=== PATIENT | male | born 1950 | race Caucasian/White ===

== ENCOUNTER 2017-07-25 10:27 | Observation (INO) ==
--- NOTE | 2017-07-25 10:57 | Emergency Department Note ---
Disposition Clinical Impression: Dyspnea on exertion Acute exacerbation of CHF (congestive heart failure) Qualifiers: Heart failure type: combined systolic and diastolic Qualified Code(s): I50.43 - Acute on chronic combined systolic (congestive) and diastolic (congestive) heart failure Disposition: Admitted As Inpatient Condition: Fair Time of Disposition: 11:54 SOB HPI - General Chief Complaint: ED Shortness of Breath/Dyspnea Stated Complaint: ROXANN From UC + Chest XR Time Seen by Provider: 07/25/17 10:35 Source: patient, family Mode of arrival: ambulatory Limitations: no limitations, physical limitation Nursing Notes Reviewed: Yes Vital Signs Reviewed: Yes - History of Present Illness 67-year-old male presents to the emergency department complaining of shortness of breath. Patient does have history of CHF, A. fib and recently had an ablation was on digoxin and has since stopped it, COPD with oxygen use at night as well as nebulized treatments and CPAP at night, diabetes and is on Coumadin. Patient states his approximately 5 days ago that had a lot of family in and out of the house that he has been doing quite a walking and moving around anytime he moves around he is becomes very short of breath. Says very abnormal for an becomes short of breath with the activity that he is doing. He does not have any chest pain he does take 40 mg Lasix twice daily. There is been continued take that but seems to not be helping his shortness of breath. They called his primary care office this morning asking about the issue with the shortness of breath they recommend go to the urgent care. At the urgent care they did an x-ray noticed that there was pulmonary edema and recommended he come here for further evaluation. Patient otherwise has no complaints including fevers, chills, nausea, vomiting, headaches, blurry vision , neck pain, back pain, chest pain, abdominal pain, pain with urination, change in bowel movements, pain or tingling on the arms or legs or any generalized weakness. - Related Data Home Medications Medication Instructions Recorded Confirmed Albuterol Sulfate [Albuterol 2 puff IH Q4HR PRN 01/11/15 07/08/17 Inhaler] Allopurinol [Zyloprim] 100 mg PO DAILY 01/11/15 07/08/17 Beclomethasone Diprop 80mcg [QVAR 1 puff IH BIDR 09/25/15 03/22/18 80 mcg] Carvedilol [Coreg] 3.125 mg PO BID 01/11/15 07/08/17 Cyanocobalamin (Vitamin B-12) 1,000 mcg PO QWEEK PRN 01/11/15 07/08/17 [Vitamin B12] Digoxin [Lanoxin] 0.125 mg PO DAILY 01/11/15 07/08/17 Levothyroxine [Synthroid] 112 mcg PO QAM 01/11/15 07/08/17 Spironolactone [Aldactone] 25 mg PO DAILY 01/11/15 07/08/17 Warfarin [Coumadin] 2.5 mg PO QPM 01/11/15 07/08/17 Digoxin [Lanoxin] 0.25 mg PO DAILY 06/16/15 07/08/17 Betaxolol 0.25% [Betoptic S] 1 drop BOTH EYES QAM 06/17/15 07/08/17 Travoprost [Travatan Z] 1 drop BOTH EYES HS 06/17/15 07/08/17 Cholecalciferol (Vitamin D3) 5,000 unit PO DAILY 07/08/17 07/08/17 [Vitamin D3] Previous Rx's Medication Instructions Recorded Atorvastatin [Lipitor] 40 mg PO DAILY #30 tablet 06/19/15 Furosemide [Lasix] 40 mg PO BID #60 06/19/15 Lisinopril [Zestril] 2.5 mg PO DAILY #30 tablet 06/19/15 Allergies Allergy/AdvReac Type Severity Reaction Status Date / Time aspirin [ASA] Allergy See Verified 05/28/16 14:56 Comments Penicillins Allergy See Verified 05/28/16 14:56 Comments Tetracycline Allergy See Verified 05/28/16 14:56 Comments vancomycin Allergy See Verified 05/28/16 14:56 Comments hydrochlorothiazide AdvReac Rash Verified 07/08/17 08:52 NSAIDS (Non-Steroidal AdvReac See Verified 07/08/17 08:52 Anti-Inflamma Comments Review of Systems: 10 point review of systems done and negative unless otherwise stated in the history of present illness. All systems ED: reviewed and negative except as stated. Review of Systems: As Per HPI Past Medical History - Past Medical History Attestation: Yes The following information was validated with the patient. Source: patient, obtained from family Medical history: Reports: atrial fibrillation, cardiomyopathy, CHF, diabetes, hyperlipidemia, hypertension, kidney stones, renal disease, thyroid disease Surgical history: Reports: pacemaker/AICD Psychiatric history: Reports: no psych history - Social History Smoking Status: Never smoker Smokeless Tobacco Status: No Alcohol use: Reports: occasionally Drug use: Reports: none Physical Exam - General Limitations: physical limitation General appearance: alert, in no apparent distress - Head Head exam: atraumatic, normocephalic, normal inspection - Eye Eye exam: Present: normal appearance, PERRL, EOMI - ENT ENT exam: normal exam, normal oropharynx, mucous membranes moist - Neck Neck exam: Present: normal inspection, full ROM, trachea midline - Chest Chest inspection: Present: normal inspection, symmetric chest wall rise - Respiratory Respiratory exam: Present: normal lung sounds bilaterally. Absent: respiratory distress, wheezes, stridor, accessory muscle use, prolonged expiratory phase - Cardiovascular Cardiovascular exam: Present: regular rate, normal rhythm, normal heart sounds - Abdominal Exam Abdominal exam: Present: soft, Non-Tender, normal bowel sounds. Absent: tenderness, distention, guarding, rebound, rigidity - Extremities Exam Extremities exam: Present: normal inspection, full ROM, pedal edema (1+ pitting edema bilaterally in the legs.). Absent: tenderness - Expanded Lower Extremity Exam Neurovascular/Tendon exam: Present: normal capillary refill. Absent: pulse deficit, motor deficit, sensory deficit, tendon deficit - Back Exam Back exam: Present: normal inspection, full ROM. Absent: tenderness, CVA tenderness (R), CVA tenderness (L) - Neurological Exam Neurological exam: Present: alert, oriented X3 - Skin Skin exam: Present: warm, dry, intact, normal color Course Course Narrative: 67-year-old male presented to the emergency department complaining of shortness of breath. Chest x-ray 2 view was done in urgent care and reviewed here. Will get EKG, basic labs including CBC, CMP, lactate, troponin as well as urinalysis. Patient clinically does not seem to be fluid overloaded he seems euvolemic now. Will not give any more Lasix or Nitro at this time as he is not having chest pain at this time. Disposition pending results Vital Signs Temperature 97.9 F 07/25/17 10:29 Pulse Rate 84 07/25/17 10:29 Respiratory Rate 20 07/25/17 10:29 Blood Pressure 115/80 07/25/17 10:29 O2 Sat by Pulse Oximetry 97 07/25/17 10:29 Temperature 97.9 F 07/25/17 10:29 Pulse Rate 85 07/25/17 11:55 Respiratory Rate 20 07/25/17 11:55 Blood Pressure 114/72 07/25/17 11:55 O2 Sat by Pulse Oximetry 95 07/25/17 11:55 Oxygen Delivery Oxygen Delivery Room Air Shortness of Breath/Dyspnea - MDM Narrative Medical decision making narrative: 67-year-old male presents to the emergency department complaining of shortness of breath. He does have his history of CHF as well as COPD and diabetes. Recently had an ablation. Digoxin. He also had his bypass with approximately 5 days ago and is having undergone increased stressors. Patient is unable to do normal daily activities have becoming shortness of breath. He did have an elevated BNP but his troponin was negative as well as all other labs were negative. His creatinine was slightly more elevated than normal but still within his normal limits. Due to the BNP as well as him being symptomatic we felt that admission would be warranted. I did contact the on-call glove examiner Dr. Brown who stated that there seems to be no acute processes going on he said the ST depression in his EKG is expected as well as it is old. He does have an ejection fraction of 15% chronically. Because patient retook his Lasix we will not give Lasix at this time in the emergency [place] does have chest pains or will not give nitroglycerin. I spoke with the hospitalist Dr. Valladares who agreed to admit the patient to their service. Patient and family are okay with this plan. Patient is admitted in stable condition. We did look at the x- ray that was done at the urgent care was did show possibly pulmonary edema as well as an enlarged heart. This was read in the [place] radiology department. - Medical Records Medical records reviewed: Yes I reviewed the patient's medical records. - Lab Data Lab results reviewed: Yes I reviewed the patient's lab results. Result diagrams: 07/25/17 10:49 07/25/17 10:49 Lab Results 07/25/17 07/25/17 07/25/17 Range/Units 10:49 10:49 10:49 WBC 8.8 (4.3-11.1) K/mcL RBC 4.68 (4.19-5.50) M/mcL Hgb 15.1 (12.9-16.9) g/dL Hct 45.4 (37.5-50.1) % MCV 97.0 (83.0-100.0) fL MCH 32.3 (28.0-33.3) pg MCHC 33.3 (31.6-35.5) g/dL RDW 15.8 H (11.5-14.5) % Plt Count 201 (140-400) K/mcL MPV 10.0 (9.4-12.4) fL Immature Gran % 0.6 (0-4) % Seg Neutrophils % 78.7 % Lymphocytes % 9.4 % Monocytes % 10.5 % Eosinophils % 0.5 % Basophils % 0.3 % Neutrophils # 6.9 (1.6-8.9) K/mcL Lymphocytes # 0.8 (0.6-4.6) K/mcL Monocytes # 0.9 (0.0-1.3) K/mcL Eosinophils # 0.0 (0.0-0.6) K/mcL Basophils # 0.0 (0.0-0.2) K/mcL Sodium 142 (136-145) mEq/L Potassium 4.8 (3.5-5.1) mEq/L Chloride 105 (98-107) mEq/L Carbon Dioxide 25 (23-29) mEq/L BUN 33 H (8-23) mg/dL Creatinine 1.52 H (0.70-1.30) mg/dL Est GFR ( Amer) 55 L (> 60) Est GFR (Non-Af Amer) 46 L (> 60) BUN/Creatinine Ratio 22 (6-26) Glucose 155 H (70-105) mg/dL Calculated Osmolality 304 H (280-300) Lactic Acid (0.5-2.2) mmol/L Calcium 9.1 (8.6-10.3) mg/dL Total Bilirubin 3.9 H (0.3-1.0) mg/dL AST 33 (13-39) Units/L ALT 50 (7-52) Units/L Alkaline Phosphatase 49 (34-104) Units/L Troponin I 0.03 (< 0.04) ng/mL B-Natriuretic Peptide 1296 H (Less than 100) pg/mL Serum Total Protein 6.6 (6.4-8.9) g/dL Albumin 4.1 (3.5-5.7) g/dL Globulin 2.5 (2.4-3.5) g/dL Albumin/Globulin Ratio 1.6 (1.1-2.2) Urine Color (Yellow) Urine Clarity (Clear) Urine pH (5.0-8.0) pH Units Ur Specific [place] (1.010-1.025) Urine Protein (Neg-Trace) mg/dL Urine Glucose (UA) (Normal) mg/dL Urine Ketones (Negative) mg/dL Urine Blood (Negative) Urine Nitrite (Negative) Urine Bilirubin (Negative) Urine Urobilinogen (Normal) mg/dL Ur Leukocyte Esterase (Negative) Ur Culture Indicated? (NO) 07/25/17 07/25/17 Range/Units 10:50 11:33 WBC (4.3-11.1) K/mcL RBC (4.19-5.50) M/mcL Hgb (12.9-16.9) g/dL Hct (37.5-50.1) % MCV (83.0-100.0) fL MCH (28.0-33.3) pg MCHC (31.6-35.5) g/dL RDW (11.5-14.5) % Plt Count (140-400) K/mcL MPV (9.4-12.4) fL Immature Gran % (0-4) % Seg Neutrophils % % Lymphocytes % % Monocytes % % Eosinophils % % Basophils % % Neutrophils # (1.6-8.9) K/mcL Lymphocytes # (0.6-4.6) K/mcL Monocytes # (0.0-1.3) K/mcL Eosinophils # (0.0-0.6) K/mcL Basophils # (0.0-0.2) K/mcL Sodium (136-145) mEq/L Potassium (3.5-5.1) mEq/L Chloride (98-107) mEq/L Carbon Dioxide (23-29) mEq/L BUN (8-23) mg/dL Creatinine (0.70-1.30) mg/dL Est GFR ( Amer) (> 60) Est GFR (Non-Af Amer) (> 60) BUN/Creatinine Ratio (6-26) Glucose (70-105) mg/dL Calculated Osmolality (280-300) Lactic Acid 1.8 (0.5-2.2) mmol/L Calcium (8.6-10.3) mg/dL Total Bilirubin (0.3-1.0) mg/dL AST (13-39) Units/L ALT (7-52) Units/L Alkaline Phosphatase (34-104) Units/L Troponin I (< 0.04) ng/mL B-Natriuretic Peptide (Less than 100) pg/mL Serum Total Protein (6.4-8.9) g/dL Albumin (3.5-5.7) g/dL Globulin (2.4-3.5) g/dL Albumin/Globulin Ratio (1.1-2.2) Urine Color Yellow (Yellow) Urine Clarity Clear (Clear) Urine pH 6.0 (5.0-8.0) pH Units Ur Specific [place] 1.015 (1.010-1.025) Urine Protein Negative (Neg-Trace) mg/dL Urine Glucose (UA) Normal (Normal) mg/dL Urine Ketones Negative (Negative) mg/dL Urine Blood Negative (Negative) Urine Nitrite Negative (Negative) Urine Bilirubin Negative (Negative) Urine Urobilinogen Normal (Normal) mg/dL Ur Leukocyte Esterase Negative (Negative) Ur Culture Indicated? NO (NO) - Radiology Data Radiology results reviewed: Yes I reviewed the patient's radiology results. - EKG Data EKG attestation: Yes I reviewed and interpreted this EKG. EKG results narrative: EKG done at 1103 review myself and attending shows a ventricular paced rhythm at a rate of 91, URS 26, QTc 501 with a leftward axis. There is no T-wave abnormalities there is ST depression in V4 and V5 in his [place] beats. No other signs of ischemia. No heart strength, hypertrophy, heart block. No WPW/ Brugada syndrome. His EKG does show the ST depressions in the old one done 06/16 otherwise no other acute changes
[2017-07-25 11:23] LABS: Basophils % 0.3 %; Eosinophils % 0.5 %; Hematocrit 45.4 % (37.5-50.1); Hemoglobin 15.1 g/dL (12.9-16.9); Immature Granulocytes % 0.6 % (0-4); Lymphocytes % 9.4 %; Mean Corpuscular HGB Conc 33.3 g/dL (31.6-35.5); Mean Corpuscular Hemoglobin 32.3 pg (28.0-33.3); Monocytes % 10.5 %; Platelet Count 201 K/mcL (140-400); Red Blood Count 4.68 M/mcL (4.19-5.50); Red Cell Distribution Width 15.8 % (11.5-14.5); Segmented Neutrophils % 78.7 %
[2017-07-25 11:24] LABS: Lymphocytes # 0.8 K/mcL (0.6-4.6); Monocytes # 0.9 K/mcL (0.0-1.3); Neutrophils # 6.9 K/mcL (1.6-8.9)
[2017-07-25 11:33] LABS: Albumin 4.1 g/dL (3.5-5.7); Albumin/Globulin Ratio 1.6 (1.1-2.2); Bilirubin,Total 3.9 mg/dL (0.3-1.0); Calcium 9.1 mg/dL (8.6-10.3); Globulin 2.5 g/dL (2.4-3.5); Potassium 4.8 mEq/L (3.5-5.1); Total Protein 6.6 g/dL (6.4-8.9); Troponin I 0.03 ng/mL (< 0.04)
[2017-07-25 11:43] LABS: Bilirubin,Urine Negative (Negative); Blood,Urine Negative (Negative); Clarity,Urine Clear (Clear); Color,Urine Yellow (Yellow); Glucose,Urine (UA) Normal (Normal); Ketones,Urine Negative (Negative); Leukocyte Esterase,Urine Negative (Negative); Nitrite,Urine Negative (Negative); Protein,Urine Negative (Neg-Trace); Specific Gravity,Urine 1.015 (1.010-1.025); Urobilinogen,Urine Normal (Normal)
[2017-07-25] MEDS ORDERED: Naloxone 0.4 MG/ML INJ IVP PRN (12:49)
--- NOTE | 2017-07-25 12:59 | Emergency Department Note ---
Disposition Clinical Impression: Dyspnea on exertion Acute exacerbation of CHF (congestive heart failure) Qualifiers: Heart failure type: combined systolic and diastolic Qualified Code(s): I50.43 - Acute on chronic combined systolic (congestive) and diastolic (congestive) heart failure Disposition: Admitted As Inpatient Condition: Fair Referrals: Alina Ramos DO [Primary Care Provider] - Time of Disposition: 11:35 SOB HPI - General Chief Complaint: ED Shortness of Breath/Dyspnea Stated Complaint: ROXANN From UC + Chest XR Time Seen by Provider: 07/25/17 10:35 Source: patient, family Mode of arrival: ambulatory Limitations: physical limitation Nursing Notes Reviewed: Yes Vital Signs Reviewed: Yes - Related Data Home Medications Medication Instructions Recorded Confirmed Albuterol Sulfate [Albuterol 2 puff IH Q4HR PRN 01/11/15 07/08/17 Inhaler] Allopurinol [Zyloprim] 100 mg PO DAILY 01/11/15 07/08/17 Beclomethasone Diprop 80mcg [QVAR 1 puff IH BIDR 01/11/15 07/08/17 80 mcg] Carvedilol [Coreg] 3.125 mg PO BID 01/11/15 07/08/17 Cyanocobalamin (Vitamin B-12) 1,000 mcg PO QWEEK PRN 01/11/15 07/08/17 [Vitamin B12] Digoxin [Lanoxin] 0.125 mg PO DAILY 01/11/15 07/08/17 Levothyroxine [Synthroid] 112 mcg PO QAM 01/11/15 07/08/17 Spironolactone [Aldactone] 25 mg PO DAILY 01/11/15 07/08/17 Warfarin [Coumadin] 2.5 mg PO QPM 01/11/15 07/08/17 Digoxin [Lanoxin] 0.25 mg PO DAILY 06/16/15 07/08/17 Betaxolol 0.25% [Betoptic S] 1 drop BOTH EYES QAM 06/17/15 07/08/17 Travoprost [Travatan Z] 1 drop BOTH EYES HS 06/17/15 07/08/17 Cholecalciferol (Vitamin D3) 5,000 unit PO DAILY 07/08/17 07/08/17 [Vitamin D3] Previous Rx's Medication Instructions Recorded Atorvastatin [Lipitor] 40 mg PO DAILY #30 tablet 06/19/15 Furosemide [Lasix] 40 mg PO BID #60 06/19/15 Lisinopril [Zestril] 2.5 mg PO DAILY #30 tablet 06/19/15 Allergies Allergy/AdvReac Type Severity Reaction Status Date / Time aspirin [ASA] Allergy See Verified 05/28/16 14:56 Comments Penicillins Allergy See Verified 05/28/16 14:56 Comments Tetracycline Allergy See Verified 05/28/16 14:56 Comments vancomycin Allergy See Verified 05/28/16 14:56 Comments hydrochlorothiazide AdvReac Rash Verified 07/08/17 08:52 NSAIDS (Non-Steroidal AdvReac See Verified 07/08/17 08:52 Anti-Inflamma Comments Past Medical History - Past Medical History Medical history: Reports: atrial fibrillation, cardiomyopathy, CHF, diabetes, hyperlipidemia, hypertension, kidney stones, renal disease, thyroid disease Surgical history: Reports: pacemaker/AICD Psychiatric history: Reports: no psych history - Social History Smoking Status: Never smoker Smokeless Tobacco Status: No Alcohol use: Reports: occasionally Drug use: Reports: none Physical Exam - General Limitations: physical limitation General appearance: alert, in no apparent distress Course Vital Signs Temperature 97.9 F 07/25/17 10:29 Pulse Rate 84 07/25/17 10:29 Respiratory Rate 20 07/25/17 10:29 Blood Pressure 115/80 07/25/17 10:29 O2 Sat by Pulse Oximetry 97 07/25/17 10:29 Temperature 97.9 F 07/25/17 10:29 Pulse Rate 85 07/25/17 11:55 Respiratory Rate 20 07/25/17 11:55 Blood Pressure 114/72 07/25/17 11:55 O2 Sat by Pulse Oximetry 95 07/25/17 11:55 Oxygen Delivery Oxygen Delivery Room Air Shortness of Breath/Dyspnea - Lab Data Result diagrams: 07/25/17 10:49 07/25/17 10:49 Lab Results 07/25/17 07/25/17 07/25/17 Range/Units 10:49 10:49 10:49 WBC 8.8 (4.3-11.1) K/mcL RBC 4.68 (4.19-5.50) M/mcL Hgb 15.1 (12.9-16.9) g/dL Hct 45.4 (37.5-50.1) % MCV 97.0 (83.0-100.0) fL MCH 32.3 (28.0-33.3) pg MCHC 33.3 (31.6-35.5) g/dL RDW 15.8 H (11.5-14.5) % Plt Count 201 (140-400) K/mcL MPV 10.0 (9.4-12.4) fL Immature Gran % 0.6 (0-4) % Seg Neutrophils % 78.7 % Lymphocytes % 9.4 % Monocytes % 10.5 % Eosinophils % 0.5 % Basophils % 0.3 % Neutrophils # 6.9 (1.6-8.9) K/mcL Lymphocytes # 0.8 (0.6-4.6) K/mcL Monocytes # 0.9 (0.0-1.3) K/mcL Eosinophils # 0.0 (0.0-0.6) K/mcL Basophils # 0.0 (0.0-0.2) K/mcL Sodium 142 (136-145) mEq/L Potassium 4.8 (3.5-5.1) mEq/L Chloride 105 (98-107) mEq/L Carbon Dioxide 25 (23-29) mEq/L BUN 33 H (8-23) mg/dL Creatinine 1.52 H (0.70-1.30) mg/dL Est GFR ( Amer) 55 L (> 60) Est GFR (Non-Af Amer) 46 L (> 60) BUN/Creatinine Ratio 22 (6-26) Glucose 155 H (70-105) mg/dL Calculated Osmolality 304 H (280-300) Lactic Acid (0.5-2.2) mmol/L Calcium 9.1 (8.6-10.3) mg/dL Total Bilirubin 3.9 H (0.3-1.0) mg/dL AST 33 (13-39) Units/L ALT 50 (7-52) Units/L Alkaline Phosphatase 49 (34-104) Units/L Troponin I 0.03 (< 0.04) ng/mL B-Natriuretic Peptide 1296 H (Less than 100) pg/mL Serum Total Protein 6.6 (6.4-8.9) g/dL Albumin 4.1 (3.5-5.7) g/dL Globulin 2.5 (2.4-3.5) g/dL Albumin/Globulin Ratio 1.6 (1.1-2.2) Urine Color (Yellow) Urine Clarity (Clear) Urine pH (5.0-8.0) pH Units Ur Specific [place] (1.010-1.025) Urine Protein (Neg-Trace) mg/dL Urine Glucose (UA) (Normal) mg/dL Urine Ketones (Negative) mg/dL Urine Blood (Negative) Urine Nitrite (Negative) Urine Bilirubin (Negative) Urine Urobilinogen (Normal) mg/dL Ur Leukocyte Esterase (Negative) Ur Culture Indicated? (NO) 07/25/17 07/25/17 Range/Units 10:50 11:33 WBC (4.3-11.1) K/mcL RBC (4.19-5.50) M/mcL Hgb (12.9-16.9) g/dL Hct (37.5-50.1) % MCV (83.0-100.0) fL MCH (28.0-33.3) pg MCHC (31.6-35.5) g/dL RDW (11.5-14.5) % Plt Count (140-400) K/mcL MPV (9.4-12.4) fL Immature Gran % (0-4) % Seg Neutrophils % % Lymphocytes % % Monocytes % % Eosinophils % % Basophils % % Neutrophils # (1.6-8.9) K/mcL Lymphocytes # (0.6-4.6) K/mcL Monocytes # (0.0-1.3) K/mcL Eosinophils # (0.0-0.6) K/mcL Basophils # (0.0-0.2) K/mcL Sodium (136-145) mEq/L Potassium (3.5-5.1) mEq/L Chloride (98-107) mEq/L Carbon Dioxide (23-29) mEq/L BUN (8-23) mg/dL Creatinine (0.70-1.30) mg/dL Est GFR ( Amer) (> 60) Est GFR (Non-Af Amer) (> 60) BUN/Creatinine Ratio (6-26) Glucose (70-105) mg/dL Calculated Osmolality (280-300) Lactic Acid 1.8 (0.5-2.2) mmol/L Calcium (8.6-10.3) mg/dL Total Bilirubin (0.3-1.0) mg/dL AST (13-39) Units/L ALT (7-52) Units/L Alkaline Phosphatase (34-104) Units/L Troponin I (< 0.04) ng/mL B-Natriuretic Peptide (Less than 100) pg/mL Serum Total Protein (6.4-8.9) g/dL Albumin (3.5-5.7) g/dL Globulin (2.4-3.5) g/dL Albumin/Globulin Ratio (1.1-2.2) Urine Color Yellow (Yellow) Urine Clarity Clear (Clear) Urine pH 6.0 (5.0-8.0) pH Units Ur Specific [place] 1.015 (1.010-1.025) Urine Protein Negative (Neg-Trace) mg/dL Urine Glucose (UA) Normal (Normal) mg/dL Urine Ketones Negative (Negative) mg/dL Urine Blood Negative (Negative) Urine Nitrite Negative (Negative) Urine Bilirubin Negative (Negative) Urine Urobilinogen Normal (Normal) mg/dL Ur Leukocyte Esterase Negative (Negative) Ur Culture Indicated? NO (NO) Attestation Statement - Attestation Attestation: I, Ray Fernandez, examined this patient and my medical decision-making was reviewed with the BEHAVIORAL HEALTH THERAPIST/PA/Advanced Practice Nurse/Resident Physician. I agree with the documented findings, disposition and treatment plan as described except to the extent set forth below. 67-year-old male presents emergency Department with increasing shortness of breath over the past week with significantly worsened symptoms over the past 24 hours. Family notes that patient has significantly worsened dyspnea with exertion over the past 24 hours. Patient states his 5 days ago and he is under an extreme amount of stress. Patient has a history of atrial fibrillation with a pacemaker/defibrillator in place, he recently had a cardiac ablation performed and was taken off digoxin within the past few weeks. Patient initial EKG showed a ventricularly paced rhythm with multiple PVCs and [place] beats which were concerning for possible ST depression and elevation. These [place] beats were similar to [place] beats that were recorded on previous EKGs however. Patient has no chest pain in the emergency department. Initial troponin was negative. The resident, Dr. Escobar spoke with the patient centered care specialist, Dr. Brown regarding the patient's case and presentation who felt comfortable that the morphology of the [place] beats was not an acute finding. Patient will be admitted to the hospitalist for further care and evaluation of his shortness of breath with exertion and likely CHF exacerbation. Chest x-ray shows likely interstitial edema was does not show obvious infiltrate. Patient is afebrile and he does not have a leukocytosis, we will hold antibiotics at this time. Patient is comfortable with the plan of action.
--- NOTE | 2017-07-25 12:59 | Internal Med History&Physical ---
<Mario Simms J - Last Filed: 07/25/17 12:57> Date of Encounter: 07/25/17 Time of Encounter: 12:57 Internal Medicine - H&P: HPI Chief complaint: dyspnea, CHF Admitted From: Home Plans for Post Hospital Care: Home History of present illness: Mr. Hart is a 67 year old male with a PMH of PAF, BRIAN, PND, cardiomyopathy, CHF, DM, HLD, HTN. Presents to [facility] today increasing shortness of breath which began last night. The patient reports that he has been under a lot of stress as his recently . Since then he has had to increase his activity beyond his normal day to day activities. He he c/o increasing shortness of breath with activity. He went to Urgent Care per the recommendations of his sleeper cutter. While at urgent care and x-ray was completed and pulmonary edema was found. He does have a history of CHF with an ejection fraction of 15% and is on Coreg and Lasix. He denies any fever, chills , chest pain, dizziness, weakness, increase in abdominal girth, increase in weight, increase in extremity swelling or extremity pain. No other complaints at this time. Today in the ED he was revealed to have a BNP of 1296. Past Med Surg Social Fam HX - Past Medical History Medical history: atrial fibrillation, cardiomyopathy, CHF, diabetes, hyperlipidemia, hypertension, kidney stones, renal disease, thyroid disease Psychiatric history: no psych history - Past Surgical History Surgical History: pacemaker/AICD - Social History Smoking Status: Never smoker Smokeless Tobacco Status: No Alcohol use: occasionally Drug use: none - Family History Mother Adopted: No Family Member Ethnicity: Non- Living Status: Hx Family Cardiac Disorders: Yes Hx Family Respiratory Disorders: No Hx Family Cancer: No Hx Family GI Disorders: No Hx Family Endocrine Disorder: No Hx Family Neuromuscular Disorders: No Hx Family Neurologic Disorders: No Hx Family HEENT Disorders: No Hx Family Autoimmune Disorders: Yes Father Family Member Ethnicity: Non- Living Status: Hx Family Cardiac Disorders: No Hx Family Respiratory Disorders: No Hx Family Cancer: No Hx Family GI Disorders: No Hx Family Endocrine Disorder: Yes Hx Family Neuromuscular Disorders: No Hx Family Neurologic Disorders: No Hx Family HEENT Disorders: Yes Hx Family Autoimmune Disorders: No Internal Medicine - H&P: Meds Albuterol Sulfate [Albuterol Inhaler] 2 puff IH Q4HR PRN 01/11/15 [History] Allopurinol [Zyloprim] 100 mg PO QPM 01/11/15 [History] Beclomethasone Diprop 80mcg [QVAR 80 mcg] 1 puff IH BIDR 01/11/15 [History] Carvedilol [Coreg] 6.25 mg PO BID 01/11/15 [History] Cyanocobalamin (Vitamin B-12) [Vitamin B12] 1,000 mcg PO TH 01/11/15 [History] Levothyroxine [Synthroid] 112 mcg PO QAM 01/11/15 [History] Spironolactone [Aldactone] 25 mg PO DAILY 01/11/15 [History] Warfarin [Coumadin] 2.5 mg PO QPM 01/11/15 [History] Betaxolol 0.25% [Betoptic S] 1 drop BOTH EYES QAM 06/17/15 [History] Travoprost [Travatan Z] 1 drop BOTH EYES HS 06/17/15 [History] Furosemide [Lasix] 40 mg PO BID #60 06/19/15 [Rx] Lisinopril [Zestril] 2.5 mg PO DAILY #30 tablet 06/19/15 [Rx] Cholecalciferol (Vitamin D3) [Vitamin D3] 5,000 unit PO DAILY 07/08/17 [History] Atorvastatin [Lipitor] 40 mg PO QPM 07/25/17 [History] 3 Allergy/AdvReac Type Severity Reaction Status Date / Time aspirin [ASA] Allergy See Verified 05/28/16 14:56 Comments Penicillins Allergy See Verified 05/28/16 14:56 Comments Tetracycline Allergy See Verified 05/28/16 14:56 Comments vancomycin Allergy See Verified 05/28/16 14:56 Comments hydrochlorothiazide AdvReac Rash Verified 07/08/17 08:52 NSAIDS (Non-Steroidal AdvReac See Verified 07/08/17 08:52 Anti-Inflamma Comments All Systems PM: A 10-system review of systems was performed and is negative for pertinent findings except as documented above in the HPI. Review of systems: REVIEW OF SYSTEMS GENERAL: Negative for any nausea, vomiting, fevers, chills, or weight loss. NEUROLOGIC: Negative for any blurry vision, blind spots, double vision, facial asymmetry, dysphagia, dysarthria, hemiparesis, hemisensory deficits, vertigo, ataxia. HEENT: Negative for any head trauma, neck trauma, neck stiffness, photophobia, phonophobia, sinusitis, rhinitis. CARDIAC: Negative for any chest pain, peripheral edema. Positive for dyspnea, worsens with exertion, positive for paroxysmal nocturnal dyspnea PULMONARY: Negative for any wheezing, COPD. GASTROINTESTINAL: Negative for any abdominal pain, nausea, vomiting, bright red blood per rectum, melena. GENITOURINARY: Negative for any dysuria, hematuria, incontinence. INTEGUMENTARY: Negative for any rashes, cuts, insect bites. RHEUMATOLOGIC: Negative for any joint pains, photosensitive rashes, history of vasculitis or kidney problems. HEMATOLOGIC: Negative for any abnormal bruising, frequent infections or bleeding. - Constitutional Vitals: Temp Pulse Resp BP Pulse Ox 97.9 F 85 20 114/72 95 07/25/17 10:29 07/25/17 11:55 07/25/17 11:55 07/25/17 11:55 07/25/17 11:55 General appearance: Present: cooperative, A&O X 3, no acute distress, answers questions appropriately Exam: PHYSICAL EXAMINATION: GENERAL: The patient is an ill appearing obese male in no apparent distress. He is alert and oriented x3. HEENT: Head is normocephalic and atraumatic. Extraocular muscles are intact. Pupils are equal, round, and reactive to light and accommodation. LUNGS: Fine crackles bilateral bases HEART: Regular rate and rhythm without murmur. ABDOMEN: Soft, nontender, and nondistended. Positive bowel sounds. EXTREMITIES: No extremity edema noted, no tenderness, radial pulses equal 2+ bilaterally, posterior tibial and dorsal pedal pulses equal 2+ bilaterally NEUROLOGIC: No slurred speech or facial droop noted PSYCHIATRIC: Flat affect, does not appear anxious SKIN: No ulceration, rashes or skin lesions Internal Med - H&P Results - Labs CBC & Chem 7: 07/25/17 10:49 07/25/17 10:49 - EKG Data -: EKG Interpreted by Myself - EKG Data EKG comments: EKG showed a ventricularly paced rhythm with multiple PVCs and [place] beats no changes when compared to prior ECG tracing 07/25/17 13:09 - Impressions 1. Interstitial pulmonary edema suggestive of congestive heart failure given mild to moderate cardiomegaly. 2. Right middle lobe airspace opacity potentially representing alveolar edema, pneumonia, and/or atelectasis. Superimposed right middle lobe subsegmental atelectasis. 3. Trace bilateral pleural effusions. - Assessment and plan (1) Acute on chronic systolic (congestive) heart failure Current Visit: Yes Status: Acute Assessment and plan: Presents today with increasing dyspnea. denies any chest pain CXR shows pulmonary vascular congestion, BNP of 1296 Diagnoses of acute on chronic systolic heart failure. Euvolemic today on examination, no extremity edema EF noted to be 15-20%; history of nonischemic cardiomyopathy, [facility] in 2010 shows minimal CAD IV Lasix 40 mg twice a day Continue home BB and EFRAIN Strict I's and O's and daily weight Continuous telemetry, continuous SPO2 monitoring Respiratory support per nasal cannula. Initial troponin negative,trend troponin BMP in the am TTE now (2) Cardiomyopathy Current Visit: Yes Status: Chronic Assessment and plan: History of nonischemic cardiomyopathy [facility]-2010 with minimal CAD EF 15-20% Qualifiers: Cardiomyopathy type: unspecified Qualified Code(s): I42.9 - Cardiomyopathy , unspecified (3) CKD (chronic kidney disease) stage 3, GFR 30-59 ml/min Current Visit: Yes Status: Chronic Assessment and plan: H/O CKD stage 3. Serum Cr baseline of 1.5, no changes per today's labs (4) HLD (hyperlipidemia) Current Visit: Yes Status: Chronic Assessment and plan: Continue Lipitor Qualifiers: Hyperlipidemia type: unspecified Qualified Code(s): E78.5 - Hyperlipidemia , unspecified (5) HTN (hypertension) Current Visit: Yes Status: Chronic Assessment and plan: History of HTN, blood pressure stable. Resume anti-HTN medications Qualifiers: Hypertension type: essential hypertension Qualified Code(s): I10 - Essential (primary) hypertension (6) BRIAN on CPAP Current Visit: Yes Status: Chronic Assessment and plan: CPAP at night (7) Presence of cardiac pacemaker Current Visit: No Status: Chronic (8) DVT prophylaxis Current Visit: Yes Status: Acute Assessment and plan: Heparin 5000 units SC BID (9) Atrial fibrillation Current Visit: Yes Status: Acute Assessment and plan: H/o A-fib, paced rhythm today with [place] beats per ECG. Continue Coreg, and Warfarin with PT to dose PT/INR now Qualifiers: Atrial fibrillation type: unspecified Qualified Code(s): I48.91 - Unspecified atrial fibrillation - Time Spent With Patient Total time spent is greater than 50% in coordination of care (as documented) at patient's floor/unit and/or counseling patient: 25 - 35 minutes <Kaden Valladares Jeanette - Last Filed: 07/26/17 00:04> Date of Encounter: 07/26/17 Internal Medicine - H&P: HPI History of present illness: Mr. Hart is a 67 year old male All Systems PM: A 10-system review of systems was performed and is negative for pertinent findings except as documented above in the HPI. - Constitutional Vitals: Temp Pulse Resp BP Pulse Ox 98.1 F 110 18 132/96 98 07/25/17 23:04 07/25/17 23:04 07/25/17 23:04 07/25/17 23:04 07/25/17 23:04 Internal Med - H&P Results - Labs CBC & Chem 7: 07/25/17 10:49 07/25/17 10:49 Labs: Cardiac Enzymes 07/25/17 07/25/17 Range/Units 15:57 21:15 Troponin I 0.04 H* 0.03 (< 0.04) ng/mL - Attending Attestation The patient was independently examined and his available records, labs and tests were reviewed. I bamss with the HOUSEKEEPER/CUSTODIAN/LAUNDRY WORKER's A&P. - Assessment and plan (1) Cardiomyopathy Current Visit: Yes Status: Chronic Qualifiers: Cardiomyopathy type: unspecified Qualified Code(s): I42.9 - Cardiomyopathy , unspecified (2) CKD (chronic kidney disease) stage 3, GFR 30-59 ml/min Current Visit: Yes Status: Chronic (3) Presence of cardiac pacemaker Current Visit: No Status: Chronic (4) BRIAN on CPAP Current Visit: Yes Status: Chronic (5) HTN (hypertension) Current Visit: Yes Status: Chronic Qualifiers: Hypertension type: essential hypertension Qualified Code(s): I10 - Essential (primary) hypertension (6) HLD (hyperlipidemia) Current Visit: Yes Status: Chronic Qualifiers: Hyperlipidemia type: unspecified Qualified Code(s): E78.5 - Hyperlipidemia , unspecified (7) DVT prophylaxis Current Visit: Yes Status: Acute (8) Acute on chronic systolic (congestive) heart failure Current Visit: Yes Status: Acute (9) Atrial fibrillation Current Visit: Yes Status: Acute Qualifiers: Atrial fibrillation type: unspecified Qualified Code(s): I48.91 - Unspecified atrial fibrillation - Time Spent With Patient Total time spent is greater than 50% in coordination of care (as documented) at patient's floor/unit and/or counseling patient:
[2017-07-25 13:10] LABS: INR 2.6; Prothrombin Time 28.5 Seconds (9.4-12.1)
[2017-07-25] MEDS: Furosemide 40 MG/4 ML VIAL IVP SCH ×2 (14:34→22:04)
[2017-07-25] MEDS ORDERED: Dextrose Gel 15 GM/37.5 ML TUBE PO PRN ×2 (16:22)
[2017-07-25] MEDS ORDERED: D5% in Water 1,000 ML IVC PRN (16:22)
[2017-07-25] MEDS ORDERED: *HR* Dextrose 50 % in Water (Syg) 50 ML SYRINGE IVP PRN (16:22)
[2017-07-25] MEDS: Insulin LISPRO 300 UNITS/3 ML VIAL SQ SCH (17:23)
[2017-07-25] MEDS ORDERED: Warfarin perPT PO PRN (18:00)
[2017-07-25] MEDS ORDERED: *HR* Warfarin 2.5 MG TABLET PO SCH (18:00)
[2017-07-25] MEDS ORDERED: Insulin LISPRO 300 UNITS/3 ML VIAL SQ SCH (21:00)
[2017-07-25] MEDS ORDERED: Latanoprost 2.5 ML BOTTLE BOTH EYES SCH (21:00)
[2017-07-25] MEDS ORDERED: Beclomethasone 80mcg MDI IH SCH (22:00)
[2017-07-26 05:51] LABS: INR 2.3; Prothrombin Time 25.4 Seconds (9.4-12.1)
[2017-07-26 06:05] LABS: Calcium 9.1 mg/dL (8.6-10.3); Potassium 4.1 mEq/L (3.5-5.1)
[2017-07-26 06:28] VITALS: BP 108/71
[2017-07-26] MEDS: Furosemide 40 MG/4 ML VIAL IVP SCH (07:46)
[2017-07-26] MEDS: Insulin LISPRO 300 UNITS/3 ML VIAL SQ SCH (07:49)
--- NOTE | 2017-07-26 07:52 | Discharge Summary ---
- NOTES TO OUTPATIENT PROVIDER Notes to Outpatient Provider: Admitted with acute exac CHF. Improved with diuresis. Orders not resulted at time of discharge: Pending orders 07/25/17 13:12 EV echocardiogram Routine 07/27/17 04:00 PT/INR [Prothrombin Time INR] [COAG] AM 0400 07/28/17 04:00 PT/INR [Prothrombin Time INR] [COAG] AM 0400 Date of Encounter: 07/26/17 Time of Encounter: 07:50 - Discharge Diagnosis (1) Acute on chronic systolic (congestive) heart failure Priority: Primary Status: Acute (2) Cardiomyopathy Priority: Secondary Status: Chronic Qualifiers: Cardiomyopathy type: other Qualified Code(s): I42.8 - Other cardiomyopathies (3) CKD (chronic kidney disease) stage 3, GFR 30-59 ml/min Priority: Secondary Status: Chronic (4) Presence of cardiac pacemaker Priority: Secondary Status: Chronic (5) BRIAN on CPAP Priority: Secondary Status: Chronic (6) HTN (hypertension) Priority: Secondary Status: Chronic Qualifiers: Hypertension type: essential hypertension Qualified Code(s): I10 - Essential (primary) hypertension (7) HLD (hyperlipidemia) Priority: Secondary Status: Chronic Qualifiers: Hyperlipidemia type: mixed hyperlipidemia Qualified Code(s): E78.2 - Mixed hyperlipidemia (8) DVT prophylaxis Priority: Secondary Status: Acute (9) Atrial fibrillation Priority: Secondary Status: Chronic Qualifiers: Atrial fibrillation type: paroxysmal Qualified Code(s): I48.0 - Paroxysmal atrial fibrillation Hospital course: Mr. Hart is a 67 year old male with hx of PAF, BRIAN and nonischemic cardiomyopathy with EF 15% presented to ED with complaints of increasing dyspnea. His recently and he has had increased activity since then. He denied CP. He was placed in observation for further evaluation and treatment. Mr. Hart was placed in observation on med tele. He was given IV Lasix with improvement. He slept OK and had no new acute issues. His CXR was improved in AM. He was able to ambulate in the hart and did not require oxygen. He is afebrile at this time and ready for discharge to attend his 's this AM. His children are here with him. He is high risk for readmission with CHF but at this point is improved enough to be discharged for his 's . Discharge discussed with: patient, family, nurse - Time Spent with Patient Total time spent providing and/or coordinating discharge services: 39min - Discharge Medications Home Medications: Albuterol Sulfate [Albuterol Inhaler] 2 puff IH Q4HR PRN 01/11/15 [History] Allopurinol [Zyloprim] 100 mg PO QPM 01/11/15 [History] Beclomethasone Diprop 80mcg [QVAR 80 mcg] 1 puff IH BIDR 01/11/15 [History] Carvedilol [Coreg] 6.25 mg PO BID 01/11/15 [History] Cyanocobalamin (Vitamin B-12) [Vitamin B12] 1,000 mcg PO TH 01/11/15 [History] Levothyroxine [Synthroid] 112 mcg PO QAM 01/11/15 [History] Spironolactone [Aldactone] 25 mg PO DAILY 01/11/15 [History] Warfarin [Coumadin] 2.5 mg PO QPM 01/11/15 [History] Betaxolol 0.25% [Betoptic S] 1 drop BOTH EYES QAM 06/17/15 [History] Travoprost [Travatan Z] 1 drop BOTH EYES HS 06/17/15 [History] Furosemide [Lasix] 40 mg PO BID #60 06/19/15 [Rx] Lisinopril [Zestril] 2.5 mg PO DAILY #30 tablet 06/19/15 [Rx] Cholecalciferol (Vitamin D3) [Vitamin D3] 5,000 unit PO DAILY 07/08/17 [History] Atorvastatin [Lipitor] 40 mg PO QPM 07/25/17 [History] Allergies/Adverse Reactions: 3 Allergy/AdvReac Type Severity Reaction Status Date / Time aspirin [ASA] Allergy See Verified 05/28/16 14:56 Comments Penicillins Allergy See Verified 05/28/16 14:56 Comments Tetracycline Allergy See Verified 05/28/16 14:56 Comments vancomycin Allergy See Verified 05/28/16 14:56 Comments hydrochlorothiazide AdvReac Rash Verified 07/08/17 08:52 NSAIDS (Non-Steroidal AdvReac See Verified 07/08/17 08:52 Anti-Inflamma Comments Date of admission: 07/25/17 12:52 Primary care physician: Alina Ramos DO Consults: 07/25/17 13:39 Consult to Pastoral Services [CONS] Routine Comment: 07/25/17 19:38 Consult to Fabrication And Assembly Supervisor [CONS] Routine Reason for SW Consult: Pt requesting information for assisted living on d/c. Discharging clinician: Abdirizak Souza Anticipated date of discharge: 07/26/17 - Constitutional Vitals: Temp Pulse Resp BP Pulse Ox 98.1 F 96 15 108/71 94 07/26/17 06:22 07/26/17 06:22 07/26/17 06:22 07/26/17 06:22 07/26/17 06:22 General appearance: Present: cooperative, A&O X 3, answers questions appropriately - Head Head exam: Present: normocephalic - Eye Eye exam: Present: conjuntiva pink - ENT ENT exam: Present: mucous membranes dry - Respiratory Respiratory exam: Present: decreased breath sounds, rhonchi. Absent: rales, wheezes Additional comments: Scant scattered rhonchi. No rales. - Cardiovascular Cardiovascular exam: Present: RRR. Absent: tachycardia - GI/Abdominal GI/Abdominal exam: Present: soft. Absent: tenderness - Extremities Exam Extremities exam: Present: warm. Absent: tenderness Additional comments: Trace edema - Neurological Exam Neurological exam: Present: alert, oriented X3 - Skin Skin exam: Present: dry, warm - Patient Status Disposition: Home Health Service Condition: Fair Functional capacity at discharge: independent ambulation Overall status at discharge: patient is progressing back to baseline - Discharge Instructions Follow Up With: Alina Ramos DO [Primary Care Provider] - Forms: ED Satisfaction Letter - Diet and Activity Activity: increase activity as tolerated Diet: low fat, low cholesterol, low salt diet
--- NOTE | 2017-07-26 08:15 | Physician Discharge Referral ---
Home Health/Hosp Referral Info Transfer to: Home Health Provider in Charge Post Discharge: PCP - Diagnosis (1) Acute on chronic systolic (congestive) heart failure Priority: Primary Status: Acute (2) Cardiomyopathy Priority: Primary Status: Chronic (3) CKD (chronic kidney disease) stage 3, GFR 30-59 ml/min Priority: Secondary Status: Chronic (4) Presence of cardiac pacemaker Priority: Secondary Status: Chronic (5) BRIAN on CPAP Priority: Secondary Status: Chronic (6) HTN (hypertension) Priority: Secondary Status: Chronic (7) HLD (hyperlipidemia) Priority: Secondary Status: Chronic (8) DVT prophylaxis Priority: Secondary Status: Acute (9) Atrial fibrillation Priority: Secondary Status: Chronic - Respiratory Orders Oxygen / L per min (With CPAP), None Smoking Cessation: Smoking cessation has been advised. For more information, call the [employer] Tobacco Quit Line at 2-277-ISZY-NOW. - Diet/Nutrition Diet/Nutrition Orders: No Added Salt (POLLO), Cardiac - Activity Activity Orders: Up ad hector - Services Needed Following services are medically necessary services: Nursing, Physical Therapy, Occupational Therapy - Transfer Medications Home Medications: Albuterol Sulfate [Albuterol Inhaler] 2 puff IH Q4HR PRN 01/11/15 [History] Allopurinol [Zyloprim] 100 mg PO QPM 01/11/15 [History] Beclomethasone Diprop 80mcg [QVAR 80 mcg] 1 puff IH BIDR 01/11/15 [History] Carvedilol [Coreg] 6.25 mg PO BID 01/11/15 [History] Cyanocobalamin (Vitamin B-12) [Vitamin B12] 1,000 mcg PO TH 01/11/15 [History] Levothyroxine [Synthroid] 112 mcg PO QAM 01/11/15 [History] Spironolactone [Aldactone] 25 mg PO DAILY 01/11/15 [History] Warfarin [Coumadin] 2.5 mg PO QPM 01/11/15 [History] Betaxolol 0.25% [Betoptic S] 1 drop BOTH EYES QAM 06/17/15 [History] Travoprost [Travatan Z] 1 drop BOTH EYES HS 06/17/15 [History] Furosemide [Lasix] 40 mg PO BID #60 06/19/15 [Rx] Lisinopril [Zestril] 2.5 mg PO DAILY #30 tablet 06/19/15 [Rx] Cholecalciferol (Vitamin D3) [Vitamin D3] 5,000 unit PO DAILY 07/08/17 [History] Atorvastatin [Lipitor] 40 mg PO QPM 07/25/17 [History] Allergies/Adverse Reactions: 3 Allergy/AdvReac Type Severity Reaction Status Date / Time aspirin [ASA] Allergy See Verified 05/28/16 14:56 Comments Penicillins Allergy See Verified 05/28/16 14:56 Comments Tetracycline Allergy See Verified 05/28/16 14:56 Comments vancomycin Allergy See Verified 05/28/16 14:56 Comments hydrochlorothiazide AdvReac Rash Verified 07/08/17 08:52 NSAIDS (Non-Steroidal AdvReac See Verified 07/08/17 08:52 Anti-Inflamma Comments Certification: Further, I certify that my clinical findings support that this patient is homebound (i.e. absences from home require considerable and taxing effort and are for medical reasons or synagogue services or infrequently or short duration when for other reasons) because: Homebound Reason: Patient requires assistance of a person or device to safely leave home, Severity of cardiac or pulmonary status limits activity tolerance Attestation: My signature below is to certify that this patient is under my care and that I, or nurse practitioner, or a physician's health assistant working with me, has a face-to -face encounter with this patient.
[2017-07-26] MEDS ORDERED: Spironolactone 25 MG TABLET PO SCH (09:00)
[2017-07-26] MEDS ORDERED: Cholecalciferol (D-3) 1,000 UNIT TABLET PO SCH (09:00)
[2017-07-29] MEDS ORDERED: Cyanocobalamin (B-12) 1,000 MCG TABLET PO SCH (09:00)
== END 2017-07-26 08:42 | disposition home health service (06) ==
LOC: EMEROO 10:27 → 2NENU 10:27
PROVIDERS: ADMIT Internal Medicine; ATTEND Internal Medicine

== ENCOUNTER 2017-07-29 08:17 | Inpatient (IN) ==
[2017-07-29] MEDS ORDERED: Furosemide 40 MG/4 ML VIAL IVP ONE (08:44)
--- NOTE | 2017-07-29 08:53 | Emergency Department Note ---
Disposition Clinical Impression: Acute on chronic systolic (congestive) heart failure, CKD (chronic kidney disease) stage 3, GFR 30-59 ml/min Disposition: Admitted As Inpatient Condition: Fair Referrals: Alina Ramos DO [Primary Care Provider] - Forms: ED Satisfaction Letter SOB HPI - General Chief Complaint: ED Shortness of Breath/Dyspnea Stated Complaint: ROXANN Time Seen by Provider: 07/29/17 08:31 Source: patient, EMS Mode of arrival: private vehicle Limitations: no limitations Nursing Notes Reviewed: Yes Vital Signs Reviewed: Yes - History of Present Illness Pt Subjective Complaint: shortness of breath Onset (ago): week(s) Context: other (Continued [facility]; hx of CHF. Admitted here on 07/25 for same. Not better.) Severity: moderate Consistency/Duration: intermittent Improves with: rest Worsens with: exertion Known history of: congestive heart failure Associated symptoms: Reports: polyuria. Denies: chest pain, pain with inspiration, fever, cough, wheezing, sputum production, orthopnea, lower extremity pain, polydipsia, parasthesias, palpitations, hemoptysis, diaphoresis , nausea/vomiting, syncope, abdominal pain, rash, sense of impending doom - Related Data Home Medications Medication Instructions Recorded Confirmed Albuterol Sulfate [Albuterol 2 puff IH Q4HR PRN 01/11/15 07/29/17 Inhaler] Allopurinol [Zyloprim] 100 mg PO QPM 01/11/15 07/29/17 Beclomethasone Diprop 80mcg [QVAR 1 puff IH BIDR 01/11/15 07/29/17 80 mcg] Carvedilol [Coreg] 6.25 mg PO BID 01/11/15 07/29/17 Cyanocobalamin (Vitamin B-12) 1,000 mcg PO TH 01/11/15 07/29/17 [Vitamin B12] Levothyroxine [Synthroid] 112 mcg PO QAM 01/11/15 07/29/17 Spironolactone [Aldactone] 25 mg PO DAILY 01/11/15 07/29/17 Warfarin [Coumadin] 2.5 mg PO QPM 01/11/15 07/29/17 Betaxolol 0.25% [Betoptic S] 1 drop BOTH EYES QAM 06/17/15 07/29/17 Travoprost [Travatan Z] 1 drop BOTH EYES HS 06/17/15 07/29/17 Cholecalciferol (Vitamin D3) 5,000 unit PO DAILY 07/08/17 07/29/17 [Vitamin D3] Atorvastatin [Lipitor] 40 mg PO QPM 07/25/17 07/29/17 Previous Rx's Medication Instructions Recorded Furosemide [Lasix] 40 mg PO BID #60 06/19/15 Lisinopril [Zestril] 2.5 mg PO DAILY #30 tablet 06/19/15 Allergies Allergy/AdvReac Type Severity Reaction Status Date / Time aspirin [ASA] Allergy See Verified 07/29/17 09:25 Comments Penicillins Allergy See Verified 07/29/17 09:25 Comments Tetracycline Allergy See Verified 07/29/17 09:25 Comments vancomycin Allergy See Verified 07/29/17 09:25 Comments hydrochlorothiazide AdvReac Rash Verified 07/29/17 09:25 NSAIDS (Non-Steroidal AdvReac See Verified 07/29/17 09:25 Anti-Inflamma Comments All systems ED: reviewed and negative except as stated. Review of Systems: As Per HPI Constitutional: Denies: fever, chills, weakness, weight change, night sweats ENT ED: Denies: throat pain, congestion, dysphagia Cardiovascular: Reports: as per HPI, dyspnea on exertion, orthopnea. Denies: chest pain, palpitations, edema, syncope, paroxysmal nocturnal dyspnea Respiratory: Reports: as per HPI, cough (chronic, occasional). Denies: wheezes , hemoptysis, stridor, sputum production Gastrointestinal: Denies: abdominal pain, nausea, vomiting, diarrhea Genitourinary: Reports: urgency, frequency. Denies: dysuria, hematuria Musculoskeletal: Denies: back pain, neck pain, joint swelling, arthralgia Integumentary: Denies: rash Neurological: Denies: headache, weakness, confusion Endocrine: Reports: fatigue Hematological/Lymphatic: Denies: easy bleeding, easy bruising Past Medical History - Past Medical History Attestation: Yes The following information was validated with the patient. Source: obtained from family Medical history: Reports: atrial fibrillation, cardiomyopathy, CHF, diabetes, hyperlipidemia, hypertension, kidney stones, renal disease, thyroid disease Surgical history: Reports: pacemaker/AICD Psychiatric history: Reports: no psych history - Social History Smoking Status: Never smoker Smokeless Tobacco Status: No Alcohol use: Reports: occasionally Drug use: Reports: none Physical Exam - General Limitations: no limitations General appearance: alert, in no apparent distress - Head Head exam: atraumatic, normocephalic, normal inspection - Eye Eye exam: Present: other (Left eye esotropia and proptosis). Absent: scleral icterus, conjunctival injection, periorbital swelling - ENT ENT exam: mucous membranes dry - Neck Neck exam: Present: normal inspection, full ROM, trachea midline. Absent: meningismus - Expanded Neck Exam Neck exam focused ED: Absent: JVD, carotid bruit - Chest Chest inspection: Present: normal inspection - Respiratory Respiratory exam: Absent: respiratory distress, wheezes, stridor, accessory muscle use, prolonged expiratory phase - Expanded Respiratory Exam Location: rales: Left, Right, Lower - Cardiovascular Cardiovascular exam: Present: regular rate, normal rhythm, systolic murmur - Abdominal Exam Abdominal exam: Present: soft, Non-Tender. Absent: distention, ascites, mass - Extremities Exam Extremities exam: Present: normal inspection, full ROM, normal capillary refill. Absent: tenderness, pedal edema, calf tenderness - Back Exam Back exam: Present: normal inspection - Neurological Exam Neurological exam: Present: alert, oriented X3, CN II-XII intact, normal gait - Psychiatric Psychiatric exam: Present: normal affect, normal mood - Skin Skin exam: Present: warm, dry, intact, normal color Course Course Narrative: Patient presents to the ER with his daughters for evaluation of dyspnea on exertion. He was seen here on the eighth and admitted for the same. He received IV Lasix, which transiently helped. He has two leave the hospital early due to his 's . That was on Wednesday. He has continued to have dyspnea with minimal exertion, so his family brought him in today for reevaluation. He has had no fever, chills, nausea or vomiting and no change in cough or sputum. No hemoptysis. No leg pain or swelling. He also denies chest pain, dizziness, vertigo, syncope, weakness, or recent illness. Upon arrival, he was hypoxic in the low 90s. Saturation is normal on 2 L of oxygen by nasal cannula. He has faint rales bilaterally, no wheezes. He has a grade 3 systolic murmur. Rate and rhythm are normal. He has no peripheral edema, no leg pain or tenderness. EKG, labs and x-ray have been ordered. Case has been discussed with Dr. Ramírez. He has reviewed the EKG as well. He agrees with the assessment and plan. Patient's EKG is unchanged compared to previous. His BNP is still elevated. It is slightly better than it was on July 25. His creatinine however is slightly worse. The remainder of the labs are unremarkable. Troponin 0.03. X- ray does not show an infiltrate or pulmonary edema. He does have cardiomegaly. X-ray was read by the radiologist. Patient received Lasix IV. Hospitalist was paged for admission. - Reevaluation(s) Reevaluation #1: Patient's vitals are stable with the exception of his oxygen saturation, which is a little lower. He was sleeping. He has no complaints at this time. Time: 10:30 - Consultations Consultation #1: Hospitalist paged Time: 09:20 Consultation #2: Case was discussed with Dr. Haney. He has accepted the patient, however he requests that cardiology be consulted. A consult order has been placed and Dr. Johnson was paged, as he is on-call for cardiology. I did ask the page foam gun operator if I could speak with Dr. Ray Hancock, who did an abrasion on this patient a month ago. I was informed that the only hoop cutter available to be paged at this time is Dr. Johnson. Consultation #3: Dr. Johnson was paged at 10 AM. He has not yet called back. Time: 11:04 Vital Signs Temperature 97.5 F L 07/29/17 08:20 Pulse Rate 80 07/29/17 08:20 Respiratory Rate 22 07/29/17 08:20 Blood Pressure 108/82 07/29/17 08:20 O2 Sat by Pulse Oximetry 100 07/29/17 08:20 Temperature 97.5 F L 07/29/17 08:20 Pulse Rate 82 07/29/17 10:27 Respiratory Rate 14 07/29/17 10:27 Blood Pressure 106/77 07/29/17 10:27 O2 Sat by Pulse Oximetry 92 07/29/17 10:27 Oxygen Delivery Oxygen Delivery Nasal Cannula Shortness of Breath/Dyspnea - Medical Records Medical records reviewed: Yes I reviewed the patient's medical records. - Lab Data Lab results reviewed: Yes I reviewed the patient's lab results. Lab results narrative: Laboratory Last Values WBC 6.7 K/mcL (4.3-11.1) 07/29/17 09:02 RBC 4.40 M/mcL (4.19-5.50) 07/29/17 09:02 Hgb 14.0 g/dL (12.9-16.9) 07/29/17 09:02 Hct 42.4 % (37.5-50.1) 07/29/17 09:02 MCV 96.4 fL (83.0-100.0) 07/29/17 09:02 MCH 31.8 pg (28.0-33.3) 07/29/17 09:02 MCHC 33.0 g/dL (31.6-35.5) 07/29/17 09:02 RDW 15.9 % (11.5-14.5) H 07/29/17 09:02 Plt Count 177 K/mcL (140-400) 07/29/17 09:02 MPV 10.1 fL (9.4-12.4) 07/29/17 09:02 Immature Gran % 0.6 % (0-4) 07/29/17 09:02 Seg Neutrophils % 74.9 % 07/29/17 09:02 Lymphocytes % 13.1 % 07/29/17 09:02 Monocytes % 9.7 % 07/29/17 09:02 Eosinophils % 1.3 % 07/29/17 09:02 Basophils % 0.4 % 07/29/17 09:02 Neutrophils # 5.0 K/mcL (1.6-8.9) 07/29/17 09:02 Lymphocytes # 0.9 K/mcL (0.6-4.6) 07/29/17 09:02 Monocytes # 0.7 K/mcL (0.0-1.3) 07/29/17 09:02 Eosinophils # 0.1 K/mcL (0.0-0.6) 07/29/17 09:02 Basophils # 0.0 K/mcL (0.0-0.2) 07/29/17 09:02 PT 27.6 Seconds (9.4-12.1) H 07/29/17 10:03 INR 2.5 07/29/17 10:03 Sodium 135 mEq/L (136-145) L 07/29/17 09:02 Potassium 4.9 mEq/L (3.5-5.1) 07/29/17 09:02 Chloride 105 mEq/L (98-107) 07/29/17 09:02 Carbon Dioxide 22 mEq/L (23-29) L 07/29/17 09:02 BUN 47 mg/dL (8-23) H 07/29/17 09: Creatinine 1.63 mg/dL (0.70-1.30) H 07/29/17 09:02 Est GFR ( Amer) 51 (> 60) L 07/29/17 09: Est GFR (Non-Af Amer) 42 (> 60) L 07/29/17 09:02 BUN/Creatinine Ratio 29 (6-26) H 07/29/17 09: Glucose 142 mg/dL (70-105) H 07/29/17 09: Calculated Osmolality 295 (280-300) 07/29/17: Calcium 8.5 mg/dL (8.6-10.3) L 07/29/17 09: Troponin I 0.03 ng/mL (< 0.04) 07/29/17 09: B-Natriuretic Peptide 1141 pg/mL (Less than 100) H 07/29/17 09:02 Urine Color Yellow (Yellow) 07/29/17:35 Urine Clarity Clear (Clear) 07/29/17 09:35 Urine pH 6.0 pH Units (5.0-8.0) 07/29/17 09:35 Ur Specific [place] 1.015 (1.010-1.025) 07/29/17 09:35 Urine Protein Trace mg/dL (Neg-Trace) 07/29/17 09:35 Urine Glucose (UA) Normal mg/dL (Normal) 07/29/17 09:35 Urine Ketones Negative mg/dL (Negative) 07/29/17 09:35 Urine Blood Negative (Negative) 07/29/17:35 Urine Nitrite Negative (Negative) 07/29/17 09:35 Urine Bilirubin Negative (Negative) 07/29/17 09:35 Urine Urobilinogen Normal mg/dL (Normal) 07/29/17 09:35 Ur Leukocyte Esterase Negative (Negative) 07/29/17 09:35 Urine Microscopic RBC 0-3 per hpf (0-3) 07/29/17 09:35 Urine Microscopic WBC 0-3 per hpf (0-3) 07/29/17 09:35 Ur Squamous Epith Cells Moderate per lpf (None-Few) H 07/29/17 09:35 Urine Bacteria None Seen per hpf (None-Few) 07/29/17 09:35 Hyaline Casts None Seen per lpf (None-Few) 07/29/17 09:35 Ur Culture Indicated? NO (NO) 07/29/17 09:35 Result diagrams: 07/29/17 09:02 07/29/17 09:02 Lab Results 07/29/17 07/29/17 07/29/17 Range/Units 09:02 09:02 09:02 WBC 6.7 (4.3-11.1) K/mcL RBC 4.40 (4.19-5.50) M/mcL Hgb 14.0 (12.9-16.9) g/dL Hct 42.4 (37.5-50.1) % MCV 96.4 (83.0-100.0) fL MCH 31.8 (28.0-33.3) pg MCHC 33.0 (31.6-35.5) g/dL RDW 15.9 H (11.5-14.5) % Plt Count 177 (140-400) K/mcL MPV 10.1 (9.4-12.4) fL Immature Gran % 0.6 (0-4) % Seg Neutrophils % 74.9 % Lymphocytes % 13.1 % Monocytes % 9.7 % Eosinophils % 1.3 % Basophils % 0.4 % Neutrophils # 5.0 (1.6-8.9) K/mcL Lymphocytes # 0.9 (0.6-4.6) K/mcL Monocytes # 0.7 (0.0-1.3) K/mcL Eosinophils # 0.1 (0.0-0.6) K/mcL Basophils # 0.0 (0.0-0.2) K/mcL PT (9.4-12.1) Seconds INR Sodium 135 L (136-145) mEq/L Potassium 4.9 (3.5-5.1) mEq/L Chloride 105 (98-107) mEq/L Carbon Dioxide 22 L (23-29) mEq/L BUN 47 H (8-23) mg/dL Creatinine 1.63 H (0.70-1.30) mg/dL Est GFR ( Amer) 51 L (> 60) Est GFR (Non-Af Amer) 42 L (> 60) BUN/Creatinine Ratio 29 H (6-26) Glucose 142 H (70-105) mg/dL Calculated Osmolality 295 (280-300) Calcium 8.5 L (8.6-10.3) mg/dL Troponin I 0.03 (< 0.04) ng/mL B-Natriuretic Peptide 1141 H (Less than 100) pg/mL Urine Color (Yellow) Urine Clarity (Clear) Urine pH (5.0-8.0) pH Units Ur Specific [place] (1.010-1.025) Urine Protein (Neg-Trace) mg/dL Urine Glucose (UA) (Normal) mg/dL Urine Ketones (Negative) mg/dL Urine Blood (Negative) Urine Nitrite (Negative) Urine Bilirubin (Negative) Urine Urobilinogen (Normal) mg/dL Ur Leukocyte Esterase (Negative) Urine Microscopic RBC (0-3) per hpf Urine Microscopic WBC (0-3) per hpf Ur Squamous Epith Cells (None-Few) per lpf Urine Bacteria (None-Few) per hpf Hyaline Casts (None-Few) per lpf Ur Culture Indicated? (NO) 07/29/17 07/29/17 Range/Units 09:35 10:03 WBC (4.3-11.1) K/mcL RBC (4.19-5.50) M/mcL Hgb (12.9-16.9) g/dL Hct (37.5-50.1) % MCV (83.0-100.0) fL MCH (28.0-33.3) pg MCHC (31.6-35.5) g/dL RDW (11.5-14.5) % Plt Count (140-400) K/mcL MPV (9.4-12.4) fL Immature Gran % (0-4) % Seg Neutrophils % % Lymphocytes % % Monocytes % % Eosinophils % % Basophils % % Neutrophils # (1.6-8.9) K/mcL Lymphocytes # (0.6-4.6) K/mcL Monocytes # (0.0-1.3) K/mcL Eosinophils # (0.0-0.6) K/mcL Basophils # (0.0-0.2) K/mcL PT 27.6 H (9.4-12.1) Seconds INR 2.5 Sodium (136-145) mEq/L Potassium (3.5-5.1) mEq/L Chloride (98-107) mEq/L Carbon Dioxide (23-29) mEq/L BUN (8-23) mg/dL Creatinine (0.70-1.30) mg/dL Est GFR ( Amer) (> 60) Est GFR (Non-Af Amer) (> 60) BUN/Creatinine Ratio (6-26) Glucose (70-105) mg/dL Calculated Osmolality (280-300) Calcium (8.6-10.3) mg/dL Troponin I (< 0.04) ng/mL B-Natriuretic Peptide (Less than 100) pg/mL Urine Color Yellow (Yellow) Urine Clarity Clear (Clear) Urine pH 6.0 (5.0-8.0) pH Units Ur Specific [place] 1.015 (1.010-1.025) Urine Protein Trace (Neg-Trace) mg/dL Urine Glucose (UA) Normal (Normal) mg/dL Urine Ketones Negative (Negative) mg/dL Urine Blood Negative (Negative) Urine Nitrite Negative (Negative) Urine Bilirubin Negative (Negative) Urine Urobilinogen Normal (Normal) mg/dL Ur Leukocyte Esterase Negative (Negative) Urine Microscopic RBC 0-3 (0-3) per hpf Urine Microscopic WBC 0-3 (0-3) per hpf Ur Squamous Epith Cells Moderate H (None-Few) per lpf Urine Bacteria None Seen (None-Few) per hpf Hyaline Casts None Seen (None-Few) per lpf Ur Culture Indicated? NO (NO) - Radiology Data Radiology results reviewed: Yes I reviewed the patient's radiology results. Chest X-Ray 07/29/17 08:44 IMPRESSION: Cardiomegaly without evidence of pulmonary edema. D/ / 07/29/2017 09:40:52 Dalton Najera MD / [facility] Interpreting Provider: Dalton Najera MD - EKG Data EKG attestation: Yes I reviewed and interpreted this EKG. EKG results narrative: Junctional rhythm Rate: Reports: normal Rhythm: Reports: junctional [place]/QRS: Reports: IVCD When compared to previous EKG there are: no significant changes Interpretation: Reports: unchanged when compared to prior tracing (date)
[2017-07-29 09:13] LABS: Basophils % 0.4 %; Eosinophils # 0.1 K/mcL (0.0-0.6); Eosinophils % 1.3 %; Hematocrit 42.4 % (37.5-50.1); Immature Granulocytes % 0.6 % (0-4); Lymphocytes # 0.9 K/mcL (0.6-4.6); Lymphocytes % 13.1 %; Mean Corpuscular Hemoglobin 31.8 pg (28.0-33.3); Mean Corpuscular Volume 96.4 fL (83.0-100.0); Mean Platelet Volume 10.1 fL (9.4-12.4); Monocytes # 0.7 K/mcL (0.0-1.3); Monocytes % 9.7 %; Platelet Count 177 K/mcL (140-400); Red Cell Distribution Width 15.9 % (11.5-14.5); Segmented Neutrophils % 74.9 %
[2017-07-29 09:39] LABS: Calcium 8.5 mg/dL (8.6-10.3); Potassium 4.9 mEq/L (3.5-5.1)
[2017-07-29 09:40] LABS: Troponin I 0.03 ng/mL (< 0.04)
[2017-07-29 09:48] LABS: Bilirubin,Urine Negative (Negative); Blood,Urine Negative (Negative); Clarity,Urine Clear (Clear); Color,Urine Yellow (Yellow); Glucose,Urine (UA) Normal (Normal); Ketones,Urine Negative (Negative); Leukocyte Esterase,Urine Negative (Negative); Nitrite,Urine Negative (Negative); Protein,Urine Trace mg/dL (Neg-Trace); Specific Gravity,Urine 1.015 (1.010-1.025); Urobilinogen,Urine Normal (Normal)
[2017-07-29 09:49] LABS: Bacteria,Urine None Seen per hpf (None-Few); Hyaline Casts,Urine None Seen per lpf (None-Few); RBC,Urine 0-3 per hpf (0-3); Squamous Epithelial Cell,Urine Moderate per lpf (None-Few); WBC,Urine 0-3 per hpf (0-3)
[2017-07-29 10:22] LABS: INR 2.5; Prothrombin Time 27.6 Seconds (9.4-12.1)
--- NOTE | 2017-07-29 12:49 | Emergency Department Note ---
Disposition Clinical Impression: Acute on chronic systolic (congestive) heart failure, CKD (chronic kidney disease) stage 3, GFR 30-59 ml/min Disposition: Admitted As Inpatient Condition: Fair General Adult HPI - General Chief complaint: ED Shortness of Breath/Dyspnea Stated complaint: ROXANN Time Seen by Provider: 07/29/17 08:31 Source: patient, EMS Mode of arrival: private vehicle Limitations: no limitations - History of Present Illness Pain Scale: 3 - Related Data Home Medications Medication Instructions Recorded Confirmed Albuterol Sulfate [Albuterol 2 puff IH Q4HR PRN 01/11/15 07/29/17 Inhaler] Allopurinol [Zyloprim] 100 mg PO QPM 01/11/15 07/29/17 Beclomethasone Diprop 80mcg [QVAR 1 puff IH BIDR 01/11/15 07/29/17 80 mcg] Carvedilol [Coreg] 6.25 mg PO BID 01/11/15 07/29/17 Cyanocobalamin (Vitamin B-12) 1,000 mcg PO TH 01/11/15 07/29/17 [Vitamin B12] Levothyroxine [Synthroid] 112 mcg PO QAM 01/11/15 07/29/17 Spironolactone [Aldactone] 25 mg PO DAILY 01/11/15 07/29/17 Warfarin [Coumadin] 2.5 mg PO QPM 01/11/15 07/29/17 Betaxolol 0.25% [Betoptic S] 1 drop BOTH EYES QAM 06/17/15 07/29/17 Travoprost [Travatan Z] 1 drop BOTH EYES 06/17/15 07/29/17 Cholecalciferol (Vitamin D3) 5,000 unit PO DAILY 07/08/17 07/29/17 [Vitamin D3] Atorvastatin [Lipitor] 40 mg PO QPM 07/25/17 07/29/17 Previous Rx's Medication Instructions Recorded Furosemide [Lasix] 40 mg PO BID #60 06/19/15 Lisinopril [Zestril] 2.5 mg PO DAILY #30 tablet 06/19/15 Allergies Allergy/AdvReac Type Severity Reaction Status Date / Time aspirin [ASA] Allergy See Verified 07/29/17 09:25 Comments Penicillins Allergy See Verified 07/29/17 09:25 Comments Tetracycline Allergy See Verified 07/29/17 09:25 Comments vancomycin Allergy See Verified 07/29/17 09:25 Comments hydrochlorothiazide AdvReac Rash Verified 07/29/17 09:25 NSAIDS (Non-Steroidal AdvReac See Verified 07/29/17 09:25 Anti-Inflamma Comments Past Medical History - Past Medical History Medical history: Reports: atrial fibrillation, cardiomyopathy, CHF, diabetes, hyperlipidemia, hypertension, kidney stones, renal disease, thyroid disease Surgical history: Reports: pacemaker/AICD Psychiatric history: Reports: no psych history - Social History Smoking Status: Never smoker Smokeless Tobacco Status: No Alcohol use: Reports: occasionally Drug use: Reports: none Physical Exam - General Limitations: no limitations General appearance: alert, in no apparent distress Course - Reevaluation(s) Reevaluation #1: Attestation note I examined this patient and my medical decision-making was reviewed with the emergency medicine resident. I agree with the documented findings, disposition and treatment plan as described except to the extent set forth below. Patient seen with physician clinic assistant Corina Simeon, Please see a copy of his note for details of the H&P, ED evaluation, management and disposition. I have independently evaluated the patient and confirmed appropriate portions of the history and physical exam. 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 Patient recently had his was in the hospital for CHF treatment but discharged himself we can attending the he is back with increasing shortness of breath and leg edema. Bibasilar rales. ED workup confirms acute CHF. Patient had IV Lasix and oxygen therapy. Dr. Haney hospitalist agreed to except the patient for admission. Provided 35 minutes critical care service for this patient. Awaiting bed assignment for admission. Time: 12:48 Vital Signs Temperature 97.5 F L 07/29/17 08:20 Pulse Rate 80 07/29/17 08:20 Respiratory Rate 22 07/29/17 08:20 Blood Pressure 108/82 07/29/17 08:20 O2 Sat by Pulse Oximetry 100 07/29/17 08:20 Temperature 97.5 F L 07/29/17 08:20 Pulse Rate 86 07/29/17 11:28 Respiratory Rate 14 07/29/17 11:28 Blood Pressure 127/112 07/29/17 11:28 O2 Sat by Pulse Oximetry 98 07/29/17 11:28 Oxygen Delivery Oxygen Delivery Nasal Cannula Medical Decision Making - Lab Data Result diagrams: 07/29/17 09:02 07/29/17 09:02 Lab Results 07/29/17 07/29/17 07/29/17 Range/Units 09:02 09:02 09:02 WBC 6.7 (4.3-11.1) K/mcL RBC 4.40 (4.19-5.50) M/mcL Hgb 14.0 (12.9-16.9) g/dL Hct 42.4 (37.5-50.1) % MCV 96.4 (83.0-100.0) fL MCH 31.8 (28.0-33.3) pg MCHC 33.0 (31.6-35.5) g/dL RDW 15.9 H (11.5-14.5) % Plt Count 177 (140-400) K/mcL MPV 10.1 (9.4-12.4) fL Immature Gran % 0.6 (0-4) % Seg Neutrophils % 74.9 % Lymphocytes % 13.1 % Monocytes % 9.7 % Eosinophils % 1.3 % Basophils % 0.4 % Neutrophils # 5.0 (1.6-8.9) K/mcL Lymphocytes # 0.9 (0.6-4.6) K/mcL Monocytes # 0.7 (0.0-1.3) K/mcL Eosinophils # 0.1 (0.0-0.6) K/mcL Basophils # 0.0 (0.0-0.2) K/mcL PT (9.4-12.1) Seconds INR Sodium 135 L (136-145) mEq/L Potassium 4.9 (3.5-5.1) mEq/L Chloride 105 (98-107) mEq/L Carbon Dioxide 22 L (23-29) mEq/L BUN 47 H (8-23) mg/dL Creatinine 1.63 H (0.70-1.30) mg/dL Est GFR ( Amer) 51 L (> 60) Est GFR (Non-Af Amer) 42 L (> 60) BUN/Creatinine Ratio 29 H (6-26) Glucose 142 H (70-105) mg/dL Calculated Osmolality 295 (280-300) Calcium 8.5 L (8.6-10.3) mg/dL Troponin I 0.03 (< 0.04) ng/mL B-Natriuretic Peptide 1141 H (Less than 100) pg/mL Urine Color (Yellow) Urine Clarity (Clear) Urine pH (5.0-8.0) pH Units Ur Specific [place] (1.010-1.025) Urine Protein (Neg-Trace) mg/dL Urine Glucose (UA) (Normal) mg/dL Urine Ketones (Negative) mg/dL Urine Blood (Negative) Urine Nitrite (Negative) Urine Bilirubin (Negative) Urine Urobilinogen (Normal) mg/dL Ur Leukocyte Esterase (Negative) Urine Microscopic RBC (0-3) per hpf Urine Microscopic WBC (0-3) per hpf Ur Squamous Epith Cells (None-Few) per lpf Urine Bacteria (None-Few) per hpf Hyaline Casts (None-Few) per lpf Ur Culture Indicated? (NO) 07/29/17 07/29/17 Range/Units 09:35 10:03 WBC (4.3-11.1) K/mcL RBC (4.19-5.50) M/mcL Hgb (12.9-16.9) g/dL Hct (37.5-50.1) % MCV (83.0-100.0) fL MCH (28.0-33.3) pg MCHC (31.6-35.5) g/dL RDW (11.5-14.5) % Plt Count (140-400) K/mcL MPV (9.4-12.4) fL Immature Gran % (0-4) % Seg Neutrophils % % Lymphocytes % % Monocytes % % Eosinophils % % Basophils % % Neutrophils # (1.6-8.9) K/mcL Lymphocytes # (0.6-4.6) K/mcL Monocytes # (0.0-1.3) K/mcL Eosinophils # (0.0-0.6) K/mcL Basophils # (0.0-0.2) K/mcL PT 27.6 H (9.4-12.1) Seconds INR 2.5 Sodium (136-145) mEq/L Potassium (3.5-5.1) mEq/L Chloride (98-107) mEq/L Carbon Dioxide (23-29) mEq/L BUN (8-23) mg/dL Creatinine (0.70-1.30) mg/dL Est GFR ( Amer) (> 60) Est GFR (Non-Af Amer) (> 60) BUN/Creatinine Ratio (6-26) Glucose (70-105) mg/dL Calculated Osmolality (280-300) Calcium (8.6-10.3) mg/dL Troponin I (< 0.04) ng/mL B-Natriuretic Peptide (Less than 100) pg/mL Urine Color Yellow (Yellow) Urine Clarity Clear (Clear) Urine pH 6.0 (5.0-8.0) pH Units Ur Specific [place] 1.015 (1.010-1.025) Urine Protein Trace (Neg-Trace) mg/dL Urine Glucose (UA) Normal (Normal) mg/dL Urine Ketones Negative (Negative) mg/dL Urine Blood Negative (Negative) Urine Nitrite Negative (Negative) Urine Bilirubin Negative (Negative) Urine Urobilinogen Normal (Normal) mg/dL Ur Leukocyte Esterase Negative (Negative) Urine Microscopic RBC 0-3 (0-3) per hpf Urine Microscopic WBC 0-3 (0-3) per hpf Ur Squamous Epith Cells Moderate H (None-Few) per lpf Urine Bacteria None Seen (None-Few) per hpf Hyaline Casts None Seen (None-Few) per lpf Ur Culture Indicated? NO (NO)
[2017-07-29] MEDS ORDERED: Acetaminophen 325 MG TABLET PO PRN (14:04)
[2017-07-29] MEDS ORDERED: Naloxone 0.4 MG/ML INJ IVP PRN (14:04)
[2017-07-29] MEDS ORDERED: Cyanocobalamin (B-12) 1,000 MCG TABLET PO SCH (14:15)
--- NOTE | 2017-07-29 14:20 | Cardiology Consult Note ---
<Alberto Fabian - Last Filed: 07/29/17 15:23> Date of Encounter: 07/29/17 Time of Encounter: 14:00 Assessment and Plan (1) Acute on chronic systolic (congestive) heart failure Current Visit: Yes Status: Acute Acute decompensated systolic CHF - crackles on exam, LE edema bilaterally CXR shows cardiomegaly with increased vascular congestion without pulmonary edema Recent admission for same symptoms and consistent symptoms since - symptoms associated with the passing of his - possible Takotsubo Bi-ventricular ICD replaced on 07/08/17 - AV node ablation at that time as well Echo 01/11/15: LVEF 15-20%, LV severely dilated, moderate bi-atrial enlargement, mild-moderate MR/TR, mild [place] LHC 2010: minimal CAD Plan: - Repeat echo pending - IV lasix, monitor I&O's, daily weights, salt restriction and fluid restriction - Continue aldactone and BB (2) Atrial fibrillation Current Visit: Yes Status: Chronic s/p AV diana ablation on 07/08/17 - due to interference with pacemaker rhythm. Currently HR 70-80's Continue coumadin for primary stroke prevention - INR therapeutic at 2.5 Qualifiers: Atrial fibrillation type: chronic Qualified Code(s): I48.2 - Chronic atrial fibrillation (3) Non-ischemic cardiomyopathy Current Visit: Yes Status: Chronic s/p [employer] - replaced on 07/08/17 (4) Biventricular ICD (implantable cardioverter-defibrillator) in place Current Visit: Yes Status: Chronic (5) HTN (hypertension) Current Visit: Yes Status: Chronic Continue home meds Qualifiers: Hypertension type: essential hypertension Qualified Code(s): I10 - Essential (primary) hypertension (6) HLD (hyperlipidemia) Current Visit: Yes Status: Chronic Continue statin Qualifiers: Hyperlipidemia type: mixed hyperlipidemia Qualified Code(s): E78.2 - Mixed hyperlipidemia (7) CKD (chronic kidney disease) stage 3, GFR 30-59 ml/min Current Visit: Yes Status: Chronic SCr now 1.63 - baseline appears 1.4-1.5. Hold ACEI. Continue diuresis for now and monitor renal function. Discussion w patient/family: The assessment and plan as outlined above was discussed with the patient and/or family members who expressed understanding and agreement. All questions were answered. Thank you for involving us in the care of your patient. Please call with any questions. History of Present Illness Consult date: 07/29/17 Requesting physician: Corina Simeon Consult reason: Dyspnea with recent ablation Chief complaint: Dyspnea History of present illness: Mr. Hart is a 67 year old male with PMH of NICM with biventricular ICD, systolic CHF (EF 15-20%), A. fib s/p AV node ablation, HTN, HLD, DM, CKD stage 3 , and BRIAN compliant on BiPAP, presented to the hospital with worsening dyspnea and dyspnea on exertion. Symptoms began about 10 days ago after the passing of his . Reports he had been more active since that time as well due to making arrangements. He was then admitted to the hospital on 07/25 for CHF exacerbation and discharged on 07/26 to make to the . He states that his dyspnea never seemed to improve. Reports dyspnea on exertion, and usually improves with rest, however this morning his breathing became difficult at rest. Associated symptoms include dry cough, PND, and LE edema. He denies light-headedness, syncope, falls, chest pain/pressure, palpitations, or N/V. Previously he was able to walk 3 blocks before becoming short of breath, but now he is unable to walk across the room without dyspnea. Prior Cardiac Imaging: - Echo 01/11/15: LVEF 15-20%, LV severely dilated, moderate bi-atrial enlargement , mild-moderate MR/TR, mild [place] - LHC 2010: minimal CAD Past Med Surg Social Fam HX - Past Medical History Medical history: atrial fibrillation, cardiomyopathy, CHF, diabetes, hyperlipidemia, hypertension, kidney stones, renal disease, thyroid disease Psychiatric history: no psych history - Past Surgical History Surgical History: pacemaker/AICD - Social History Smoking Status: Never smoker Smokeless Tobacco Status: No Alcohol use: occasionally Drug use: none - Family History Mother Adopted: No Family Member Ethnicity: Non- Living Status: Hx Family Cardiac Disorders: Yes Hx Family Respiratory Disorders: No Hx Family Cancer: No Hx Family GI Disorders: No Hx Family Endocrine Disorder: No Hx Family Neuromuscular Disorders: No Hx Family Neurologic Disorders: No Hx Family HEENT Disorders: No Hx Family Autoimmune Disorders: Yes Father Family Member Ethnicity: Non- Living Status: Hx Family Cardiac Disorders: No Hx Family Respiratory Disorders: No Hx Family Cancer: No Hx Family GI Disorders: No Hx Family Endocrine Disorder: Yes Hx Family Neuromuscular Disorders: No Hx Family Neurologic Disorders: No Hx Family HEENT Disorders: Yes Hx Family Autoimmune Disorders: No Medications and Allergies Albuterol Sulfate [Albuterol Inhaler] 2 puff IH Q4HR PRN 01/11/15 [History] Allopurinol [Zyloprim] 100 mg PO QPM 01/11/15 [History] Beclomethasone Diprop 80mcg [QVAR 80 mcg] 1 puff IH BIDR 01/11/15 [History] Carvedilol [Coreg] 6.25 mg PO BID 01/11/15 [History] Cyanocobalamin (Vitamin B-12) [Vitamin B12] 1,000 mcg PO TH 01/11/15 [History] Levothyroxine [Synthroid] 112 mcg PO QAM 01/11/15 [History] Spironolactone [Aldactone] 25 mg PO DAILY 01/11/15 [History] Warfarin [Coumadin] 2.5 mg PO QPM 01/11/15 [History] Betaxolol 0.25% [Betoptic S] 1 drop BOTH EYES QAM 06/17/15 [History] Travoprost [Travatan Z] 1 drop BOTH EYES HS 06/17/15 [History] Furosemide [Lasix] 40 mg PO BID #60 06/19/15 [Rx] Lisinopril [Zestril] 2.5 mg PO DAILY #30 tablet 06/19/15 [Rx] Cholecalciferol (Vitamin D3) [Vitamin D3] 5,000 unit PO DAILY 07/08/17 [History] Atorvastatin [Lipitor] 40 mg PO QPM 07/25/17 [History] 3 Allergy/AdvReac Type Severity Reaction Status Date / Time aspirin [ASA] Allergy See Verified 07/29/17 09:25 Comments Penicillins Allergy See Verified 07/29/17 09:25 Comments Tetracycline Allergy See Verified 07/29/17 09:25 Comments vancomycin Allergy See Verified 07/29/17 09:25 Comments hydrochlorothiazide AdvReac Rash Verified 07/29/17 09:25 NSAIDS (Non-Steroidal AdvReac See Verified 07/29/17 09:25 Anti-Inflamma Comments All Systems Review: The remainder of the systems were reviewed and are negative Physical Examination Vital Signs, Last 4 Hours Pulse Resp BP Pulse Ox 07/29/17 12:48 86 18 99/76 98 General: Conversant, No Apparent Distress HEENT: Atraumatic, Normocephaly, Mucus Membranes Moist Neck: No JVD, Normal carotid pulses Cardiac: Reg Rate and Rhythm, No Murmur Lungs: Other (Diminished breath sounds, crackles bilaterally) Neuro: Alert and responsive, No focal deficits noted Abdomen: Soft, Non-Tender Skin: No rashes noted on visualized skin Musculoskeletal: No Chest Wall Tenderness Extremities: No Clubbing, No Cyanosis, Normal Pulses, Other (bilateral pitting edema) Results 07/29/17 09:02 07/29/17 09:02 - EKG Interpretation EKG results cardiology: personally reviewed (ventricularly paced rhythm) Consult Discharge Plan - Plan Referrals: Alina Ramos DO [Primary Care Provider] - <Juvencio Johnson - Last Filed: 07/30/17 10:31> Date of Encounter: 07/29/17 Time of Encounter: 19:00 - Attending Attestation I examined this patient and my medical decision-making was reviewed with the Resident Physician. I agree with the documented findings, disposition and treatment plan as described except to the extent set forth below. CC; Shortness of breath Pt reports approx ten day history of increasing shortness of breath, comes and goes, most severe following the recent demise of his ten days ago. He notes initially had no symptoms, was able to walk up to three blocks with rest, but has developed very limiting shortness of breath with exertion. Over last ten days he has noted slowly worsening symptoms at low levels of exertion. He now cannot walk ten steps to rest room with out severe shortness of breath causing him to stop to catch his breath. HE has known hx of non-ischemic cardiomyopathy, with indwelling AIDC, EF 20 - 25%, He was much better compensated until the recent of his . He reports not very compliant with fluid, sodium and caloric restriction. He had presented to 07/25 with similar [id number], responded well, signed himself out against medical advice to attend his wifes' . He has undergone LHC 2010 which showed minimal CAD. HE is now resting comfortably on nasal O2. PM HX: reviewed PE: Reviewed, agree with above with exception: decreased visual acuity, morbid obesity, IMP: 1. Acute on chronic systolic heart failure, unclear etiology of recent decline, will order echo to eval LV and pulmonary pressures. 2. Severe non-ischemic cardiomyopathy, echocardiogram pending 3. Chronic A fib with recent AV diana ablation, pacemaker dependent ventricular rhythm, will interogate PPMK, eval for chronic tachycardia 4. Benign essential hypertension - adequate control on current meds. Assessment and Plan Discussion w patient/family: The assessment and plan as outlined above was discussed with the patient and/or family members who expressed understanding and agreement. All questions were answered. Thank you for involving us in the care of your patient. Please call with any questions. History of Present Illness History of present illness: Mr. Hart is a 67 year old male All Systems Review: The remainder of the systems were reviewed and are negative Physical Examination Vital Signs, Last 4 Hours Temp Pulse Resp BP Pulse Ox 07/30/17 07:58 14 98 07/30/17 06:53 98.3 F 80 14 126/83 98 Results 07/30/17 05:08 07/30/17 05:08 Lab Results 07/30/17 07/30/17 07/30/17 05:08 05:08 05:08 WBC 6.5 Hgb 14.2 Hct 43.0 Plt Count 184 INR 2.3 APTT 31.8 Sodium 136 Potassium 4.2 Chloride 103 Carbon Dioxide 25 BUN 40 H Creatinine 1.52 H Glucose 142 H Calcium 8.7 Magnesium 2.6 Total Bilirubin 3.0 H AST 34 ALT 51 Alkaline Phosphatase 51 TSH 07/30/17 05:08 WBC Hgb Hct Plt Count INR APTT Sodium Potassium Chloride Carbon Dioxide BUN Creatinine Glucose Calcium Magnesium Total Bilirubin AST ALT Alkaline Phosphatase TSH 2.959
--- NOTE | 2017-07-29 15:36 | Internal Med History&Physical ---
<Mike Portillo - Last Filed: 07/29/17 18:38> Date of Encounter: 07/29/17 Time of Encounter: 13:45 Internal Medicine - H&P: HPI Chief complaint: SOB/Dyspnea Admitted From: Emergency Dept Plans for Post Hospital Care: Home History of present illness: Mr. Hart is a 67 year old male w/PMH of atrial fibrillation, cardiomyopathy, optic atrophy, CHF, diabetes, HLD, HTN, kidney stones, CKD, and thyroid disease presents from the ED with chief complaint of shortness of breath and dyspnea since last Wednesday. Patient reports he was admitted Wednesday and Tuesday 07/25 and 07/26 for CHF and was discharged on Wednesday for his 's . Pt. is post- ablation two weeks ago by Dr. Ray Hancock and digoxin was stopped at that time. States he is followed by Dr. Ortega for Cardiology. Reports increase in SOB, weight, and LE edema since discharge. Previous EF 15-20%. SOB worse w/mild exertion. Pt. denies recent illness, fever, chills, nausea, vomiting, CP, palpitations, abdominal pain, diarrhea, constipation, numbness, tingling, dizziness, pre-syncope, or syncope. Past Med Surg Social Fam HX - Past Medical History Source: patient, old records reviewed, obtained from family Medical history: atrial fibrillation, cardiomyopathy, CHF, diabetes, hyperlipidemia, hypertension, kidney stones, renal disease, thyroid disease Psychiatric history: no psych history - Past Surgical History Surgical History: pacemaker/AICD - Social History Smoking Status: Never smoker Smokeless Tobacco Status: No Alcohol use: occasionally Drug use: none Current living situation: Home, With Family Activity Level: Independent ambulation, Uses cane/walker Recent Out of Country Travel Within the Last 8 Weeks: No Exposure or Possible Exposure to Illness During Travel: No - Family History Mother Adopted: No Race: Family Member Ethnicity: Non- Living Status: Age at : 81 Cause of : Complications of Alzheimer's disease Hx Family Cardiac Disorders: Yes Hx Family Neurologic Disorders: Yes (Alzheimer's disease) Father Race: Family Member Ethnicity: Non- Living Status: Age at : 83 Cause of : Complications from CVA Hx Family Cardiac Disorders: Yes (CVA, [place]) Internal Medicine - H&P: Meds Albuterol Sulfate [Albuterol Inhaler] 2 puff IH Q4HR PRN 01/11/15 [History] Allopurinol [Zyloprim] 100 mg PO QPM 01/11/15 [History] Beclomethasone Diprop 80mcg [QVAR 80 mcg] 1 puff IH BIDR 01/11/15 [History] Carvedilol [Coreg] 6.25 mg PO BID 01/11/15 [History] Cyanocobalamin (Vitamin B-12) [Vitamin B12] 1,000 mcg PO TH 01/11/15 [History] Levothyroxine [Synthroid] 112 mcg PO QAM 01/11/15 [History] Spironolactone [Aldactone] 25 mg PO DAILY 01/11/15 [History] Warfarin [Coumadin] 2.5 mg PO QPM 01/11/15 [History] Betaxolol 0.25% [Betoptic S] 1 drop BOTH EYES QAM 06/17/15 [History] Travoprost [Travatan Z] 1 drop BOTH EYES HS 06/17/15 [History] Furosemide [Lasix] 40 mg PO BID #60 06/19/15 [Rx] Lisinopril [Zestril] 2.5 mg PO DAILY #30 tablet 06/19/15 [Rx] Cholecalciferol (Vitamin D3) [Vitamin D3] 5,000 unit PO DAILY 07/08/17 [History] Atorvastatin [Lipitor] 40 mg PO QPM 07/25/17 [History] 3 Allergy/AdvReac Type Severity Reaction Status Date / Time aspirin [ASA] Allergy See Verified 07/29/17 09:25 Comments Penicillins Allergy See Verified 07/29/17 09:25 Comments Tetracycline Allergy See Verified 07/29/17 09:25 Comments vancomycin Allergy See Verified 07/29/17 09:25 Comments hydrochlorothiazide AdvReac Rash Verified 07/29/17 09:25 NSAIDS (Non-Steroidal AdvReac See Verified 07/29/17 09:25 Anti-Inflamma Comments All Systems PM: A 10-system review of systems was performed and is negative for pertinent findings except as documented above in the HPI. - Constitutional Constitutional: as per HPI, weight gain, no chills, no fever(s), no night sweats - EENT Eyes: as per HPI, other visual disturbances (Optic atrophy), no change in vision , no discharge, no pain, no photophobia Ears: no ear discharge, no ear pain, no tinnitus Nose, mouth and throat: no dysphagia, no nasal discharge, no neck pain, no sore throat - Breasts Breasts: as per HPI - Cardiovascular Cardiovascular ROS IM: as per HPI, dyspnea, dyspnea on exertion, edema ( Bilateral 1+ pitting edema of LEs), orthopnea, no chest pain, no diaphoresis, no lightheadedness, no palpitations, no syncope - Respiratory Respiratory: as per HPI, dyspnea, dyspnea on exertion, no cough, no wheezing, no excessive phlegm production - Gastrointestinal Gastrointestinal: no abdominal pain, no diarrhea, no hematemesis, no hematochezia, no melena, no nausea, no vomiting - Genitourinary Genitourinary ROS male: as per HPI - Musculoskeletal Musculoskeletal ROS IM: no numbness, no tingling - Integumentary Integumentary IM: no rash, no unusual bruising - Neurological Neurological ROS: no confusion, no convulsions, no focal weakness, no numbness, no tingling, no tremor(s) - Psychiatric Psychiatric: as per HPI - Endocrine Endocrine IM: as per HPI - Hematologic/Lymphatic Hematologic/Lymphatic: no easy bruising - Allergic/Immunologic Allergic/Immunologic: as per HPI - Constitutional Vitals: Temp Pulse Resp BP Pulse Ox 97.6 F 81 14 117/49 94 07/29/17 14:53 07/29/17 14:53 07/29/17 14:53 07/29/17 14:53 07/29/17 14:53 General appearance: Present: cooperative, A&O X 3, pleasant, no acute distress, obese, answers questions appropriately - Head Head exam: Present: atraumatic, normocephalic - Eye Eye exam: Present: PERRL, conjuntiva pink, sclera anicteric Pupils: Present: PERRL - ENT ENT exam: Present: normal exam - Neck Neck exam general surgery: Present: supple, trachea midline. Absent: lymphadenopathy - Respiratory Respiratory exam: Absent: accessory muscle use, rales, rhonchi, wheezes - Cardiovascular Cardiovascular exam: Present: irregular rhythm - GI/Abdominal GI/Abdominal exam: Present: normal bowel sounds, soft, no peritoneal signs. Absent: distended, tenderness - Rectal Rectal exam: Present: deferred - Additional comments: exam deferred. - Extremities Exam Extremities exam: Present: pedal edema (1+ pitting bilaterally in LEs), warm, radial pulses palpable and symmetrical. Absent: calf tenderness, cyanotic - Back Exam Back exam: Present: normal inspection - Neurological Exam Neurological exam: Present: CN II-XII intact, oriented X3, no focal deficits. Absent: pronater drift, facial droop, speech deficit - Psychiatric Psychiatric exam: Present: normal affect, normal mood - Skin Skin exam: Present: dry, intact Internal Med - H&P Results - Labs CBC & Chem 7: 07/29/17 09:02 07/29/17 09:02 - EKG Data Prior EKG available for review: yes EKG comments: 07/29/17 15:42 EKG dated 07/25/17 shows electronic ventricular pacemaker with PVCs. EKG dated 07/29/17 shows uncertain irregular rhythm, electronic ventricular pacemaker (see contour analysis based on intrinsic rhythm), intraventricular conduction delay, left ventricular hypertrophy and ST-T change. Inferior myocardial infarction of indeterminate age with posterior extension. - Diagnostic Studies Chest x-ray Additional comments: Impressions Chest X-Ray 07/29/17 08:44 IMPRESSION: Cardiomegaly without evidence of pulmonary edema. D/ / 07/29/2017 09:40:52 Dalton Najera MD / [facility] Interpreting Provider: Dalton Najera MD - Assessment and plan (1) Acute on chronic systolic (congestive) heart failure Current Visit: Yes Status: Acute Assessment and plan: Acute on chronic systolic CHF exacerbation. Pt. admitted 07/25 & for CHF exacerbation and discharged to attend 's . 1+ pitting edema in bilateral LEs. CXR today shows increased vascular congestion without pulmonary edema. Echo on 01/11/15 showed LVEF of 15-20%, LV severely dilated, moderate by atrial enlargement, [id number] MR/TR, mild DC. LHC in 2010 showed minimal CAD w/o stent placement. Pt. takes PO lasix 40 mg BID. Hold PO and administer 40 mg IVP lasix BID. 1.5L daily fluid restriction. Echocardiogram. Cardiology consult. Continuous cardiac telemetry. Supplemental O2 with titration and SPO2 monitoring. Monitor I&O and daily weight. Pt. discussed w/ Dr. Colin who agrees w/plan of care. Pt. is high risk for further morbidity and cardiac/respiratory decline d/t re-admission for CHF exacerbation, Hx of low LVEF, current sx, hx, and risk factors. Observation. (2) Optic atrophy Current Visit: Yes Status: Chronic Assessment and plan: Hx of chronic optic atrophy. Pt. has limited vision. Continue pts. daily eye drops. Falls/safety precautions, up with assist, bed rest w/bedside commode w/ assist only. SW consult ordered to assess pt. for possible placement in SNF. (3) Presence of biventricular AICD Current Visit: Yes Status: Chronic Assessment and plan: Hx of AICD/Pacemaker. Replaced on 07/08/17 when AV diana ablation was performed. (4) Atrial fibrillation Current Visit: Yes Status: Chronic Assessment and plan: Hx of chronic atrial fibrillation. AICD/Pacemaker in place (replaced on 07/08/17 ). Continuous cardiac telemetry. AV diana ablation performed on 07/08/[address] Ray Hancock. Digoxin stopped at that time. Qualifiers: Atrial fibrillation type: chronic Qualified Code(s): I48.2 - Chronic atrial fibrillation (5) HLD (hyperlipidemia) Current Visit: Yes Status: Chronic Assessment and plan: Hx of chronic HLD. Lipid panel in a.m. labs. Continue pts. Lipitor. Qualifiers: Hyperlipidemia type: mixed hyperlipidemia Qualified Code(s): E78.2 - Mixed hyperlipidemia (6) HTN (hypertension) Current Visit: Yes Status: Chronic Assessment and plan: Hx of chronic HTN. Monitor pt. and VS. Continue pts. Coreg, lisinopril, and Aldactone. Qualifiers: Hypertension type: essential hypertension Qualified Code(s): I10 - Essential (primary) hypertension (7) BRIAN on CPAP Current Visit: Yes Status: Chronic Assessment and plan: Hx of chronic BRIAN on CPAP. Continue CPAP HS. (8) CKD (chronic kidney disease) stage 3, GFR 30-59 ml/min Current Visit: Yes Status: Chronic Assessment and plan: Hx of CKD. GFR 42 and creatinine 1.63 on admission. Will use IV fluids judiciously, if warranted, d/t current renal dysfunction and CHF exacerbation. Avoid nephrotoxins. 1.5L daily fluid restriction. Monitor I&O and daily weight. (9) DVT prophylaxis Current Visit: Yes Status: Acute Assessment and plan: Continue pts. Warfarin w/pharmacy dosing for DVT prophylaxis. Monitor pt. for signs of bleeding. (10) Thyroid disease Current Visit: Yes Status: Chronic Assessment and plan: Hx of chronic thyroid disease. Continue pts. Synthroid. - Time Spent With Patient Total time spent is greater than 50% in coordination of care (as documented) at patient's floor/unit and/or counseling patient: 25 - 35 minutes <Loy Colin P - Last Filed: 07/29/17 23:48> Date of Encounter: 07/29/17 Internal Medicine - H&P: HPI History of present illness: Mr. Hart is a 67 year old male All Systems PM: A 10-system review of systems was performed and is negative for pertinent findings except as documented above in the HPI. - Constitutional Vitals: Temp Pulse Resp BP Pulse Ox 97.8 F 53 16 93/68 97 07/29/17 23:13 07/29/17 23:13 07/29/17 23:13 07/29/17 23:13 07/29/17 23:13 Internal Med - H&P Results - Labs CBC & Chem 7: 07/29/17 09:02 07/29/17 09:02 - Attending Attestation I examined this patient and my medical decision-making was reviewed with the Resident Physician/MEDIA CENTER SPECIALIST. I agree with the documented findings, disposition and treatment plan as described except to the extent set forth below. Patient is admitted with the CHF exacerbation. Has multiple comorbid conditions. Continue present medication/therapy for her next 48 hours. If patient does not respond and please consider pulmonary evaluation. - Assessment and plan (1) Atrial fibrillation Current Visit: Yes Status: Chronic Qualifiers: Atrial fibrillation type: chronic Qualified Code(s): I48.2 - Chronic atrial fibrillation (2) BRIAN on CPAP Current Visit: Yes Status: Chronic (3) HTN (hypertension) Current Visit: Yes Status: Chronic Qualifiers: Hypertension type: essential hypertension Qualified Code(s): I10 - Essential (primary) hypertension (4) HLD (hyperlipidemia) Current Visit: Yes Status: Chronic Qualifiers: Hyperlipidemia type: mixed hyperlipidemia Qualified Code(s): E78.2 - Mixed hyperlipidemia (5) DVT prophylaxis Current Visit: Yes Status: Acute (6) Acute on chronic systolic (congestive) heart failure Current Visit: Yes Status: Acute (7) Presence of biventricular AICD Current Visit: Yes Status: Chronic (8) Optic atrophy Current Visit: Yes Status: Chronic (9) CKD (chronic kidney disease) stage 3, GFR 30-59 ml/min Current Visit: Yes Status: Chronic (10) Thyroid disease Current Visit: Yes Status: Chronic - Time Spent With Patient Total time spent is greater than 50% in coordination of care (as documented) at patient's floor/unit and/or counseling patient:
[2017-07-29] MEDS: Furosemide 40 MG/4 ML VIAL IVP SCH (16:32)
[2017-07-29] MEDS: *HR* Warfarin 2.5 MG TABLET PO SCH (16:32)
[2017-07-29] MEDS ORDERED: D5% in Water 1,000 ML IVC PRN (17:30)
[2017-07-29] MEDS ORDERED: Dextrose Gel 15 GM/37.5 ML TUBE PO PRN ×2 (17:30)
[2017-07-29] MEDS ORDERED: *HR* Dextrose 50 % in Water (Syg) 50 ML SYRINGE IVP PRN (17:30)
[2017-07-29] MEDS ORDERED: Warfarin perPT PO PRN (18:00)
[2017-07-29] MEDS: Latanoprost 2.5 ML BOTTLE BOTH EYES SCH (20:41)
[2017-07-29] MEDS: Insulin LISPRO 300 UNITS/3 ML VIAL SQ SCH (20:42)
[2017-07-29] MEDS: Beclomethasone 80mcg MDI IH SCH (21:07)
[2017-07-30 06:10] LABS: Basophils % 0.6 %; Eosinophils # 0.1 K/mcL (0.0-0.6); Hemoglobin 14.2 g/dL (12.9-16.9); Immature Granulocytes % 0.6 % (0-4); Lymphocytes # 1.2 K/mcL (0.6-4.6); Mean Corpuscular Hemoglobin 31.6 pg (28.0-33.3); Mean Corpuscular Volume 95.8 fL (83.0-100.0); Mean Platelet Volume 10.2 fL (9.4-12.4); Monocytes # 0.6 K/mcL (0.0-1.3); Monocytes % 9.3 %; Neutrophils # 4.5 K/mcL (1.6-8.9); Platelet Count 184 K/mcL (140-400); Red Blood Count 4.49 M/mcL (4.19-5.50); Red Cell Distribution Width 15.8 % (11.5-14.5); Segmented Neutrophils % 69.5 %
[2017-07-30 06:17] LABS: INR 2.3; Prothrombin Time 25.5 Seconds (9.4-12.1)
[2017-07-30 06:19] LABS: Activated Partial Thrombo Time 31.8 Seconds (26.0-36.0)
[2017-07-30 06:32] LABS: Albumin 3.7 g/dL (3.5-5.7); Albumin/Globulin Ratio 1.7 (1.1-2.2); Calcium 8.7 mg/dL (8.6-10.3); Chol/HDL Ratio 4.7 (0-4.9); Globulin 2.2 g/dL (2.4-3.5); Magnesium 2.6 mg/dL (1.6-2.6); Potassium 4.2 mEq/L (3.5-5.1); Total Protein 5.9 g/dL (6.4-8.9)
[2017-07-30 06:45] LABS: Thyroid Stimulating Hormone 2.959 mcIU/mL (0.340-5.600)
[2017-07-30] MEDS: Beclomethasone 80mcg MDI IH SCH ×2 (07:55→20:52)
[2017-07-30 08:32] LABS: Estimated Average Glucose 157 mg/dl; Hemoglobin A1C 7.1 %
[2017-07-30] MEDS ORDERED: Perflutren Lipid Microsphere 1.3 ML in 0.9 % Sodium Chloride 8.7 ML IVP ONE (08:37)
[2017-07-30] MEDS: Insulin LISPRO 300 UNITS/3 ML VIAL SQ SCH ×4 (10:45→21:07)
[2017-07-30] MEDS: Cholecalciferol (D-3) 1,000 UNIT TABLET PO SCH (10:50)
[2017-07-30] MEDS: Spironolactone 25 MG TABLET PO SCH (10:50)
--- NOTE | 2017-07-30 10:51 | Cardiology Progress Note ---
<Alberto Fabian - Last Filed: 07/30/17 14:34> Date of Encounter: 07/30/17 Time of Encounter: 10:10 Assessment and Plan (1) Acute on chronic systolic (congestive) heart failure Current Visit: Yes Status: Acute Acute decompensated systolic CHF - crackles on exam, LE edema bilaterally CXR shows cardiomegaly with increased vascular congestion without pulmonary edema Recent admission for same symptoms and consistent symptoms since - symptoms associated with the passing of his - possible Takotsubo Bi-ventricular ICD replaced on 07/08/17 - AV node ablation at that time as well Echo 01/11/15: LVEF 15-20%, LV severely dilated, moderate bi-atrial enlargement, mild-moderate MR/TR, mild MI LHC 2010: minimal CAD I/O's: -430ml since admission [facility]: LVEF 15%, severe LV dysfunction. Severely dilated LV, RA, and LA. Mildly dilated RV. Mild MR/TR. Moderate-severe pulmonary HTN. Plan: - IV lasix, monitor I&O's, daily weights, salt restriction, and fluid restriction - Continue aldactone and BB - Was given ACEI this morning - will need 36 hour wash-out. Then start Entresto tomorrow night (2) Atrial fibrillation Current Visit: Yes Status: Chronic s/p AV diana ablation on 07/08/17 - due to interference with pacemaker rhythm. Currently HR 70-80's Continue coumadin for primary stroke prevention - INR therapeutic Qualifiers: Atrial fibrillation type: chronic Qualified Code(s): I48.2 - Chronic atrial fibrillation (3) Non-ischemic cardiomyopathy Current Visit: Yes Status: Chronic s/p [employer] - replaced on 07/08/17 (4) Biventricular ICD (implantable cardioverter-defibrillator) in place Current Visit: Yes Status: Chronic (5) HTN (hypertension) Current Visit: Yes Status: Chronic Continue home meds Qualifiers: Hypertension type: essential hypertension Qualified Code(s): I10 - Essential (primary) hypertension (6) HLD (hyperlipidemia) Current Visit: Yes Status: Chronic Continue statin Qualifiers: Hyperlipidemia type: mixed hyperlipidemia Qualified Code(s): E78.2 - Mixed hyperlipidemia (7) CKD (chronic kidney disease) stage 3, GFR 30-59 ml/min Current Visit: Yes Status: Chronic SCr improving - baseline appears 1.4-1.5 Starting Entresto tomorrow night. Continue diuresis for now and monitor renal function Discussion w patient/family: The assessment and plan as outlined above was discussed with the patient and/or family members who expressed understanding and agreement. All questions were answered. Thank you for involving us in the care of your patient. Please call with any questions. Subjective Principal diagnosis: Acute Systolic CHF Interval history: Pt doing well this morning. Reports one episode of coughing on CPAP overnight, but that it shortly resolved. States he feels his breathing is improving. LE edema is much improved. Denies chest pain/pressure, palpitations, dyspnea, light -headedness, or LE edema. Objective Vital Signs, Last 4 Hours Temp Pulse Resp BP Pulse Ox 07/30/17 07:58 14 98 07/30/17 06:53 98.3 F 80 14 126/83 98 General: Conversant, No Apparent Distress HEENT: Atraumatic, Normocephaly, Mucus Membranes Moist Neck: No JVD, Normal carotid pulses Cardiac: Reg Rate and Rhythm, No Murmur Lungs: Normal Breath Sounds, No Wheeze, Rales, Rhonchi Neuro: Alert and responsive, No focal deficits noted Abdomen: Soft, Non-Tender Skin: No rashes noted on visualized skin Musculoskeletal: No Chest Wall Tenderness Extremities: No Clubbing, No Cyanosis, Normal Pulses, Other (Mild bilateral edema - improving) Results 07/30/17 05:08 07/30/17 05:08 Lab Results 07/30/17 07/30/17 07/30/17 05:08 05:08 05:08 WBC 6.5 Hgb 14.2 Hct 43.0 Plt Count 184 INR 2.3 APTT 31.8 Sodium 136 Potassium 4.2 Chloride 103 Carbon Dioxide 25 BUN 40 H Creatinine 1.52 H Glucose 142 H Calcium 8.7 Magnesium 2.6 Total Bilirubin 3.0 H AST 34 ALT 51 Alkaline Phosphatase 51 TSH 07/30/17 05:08 WBC Hgb Hct Plt Count INR APTT Sodium Potassium Chloride Carbon Dioxide BUN Creatinine Glucose Calcium Magnesium Total Bilirubin AST ALT Alkaline Phosphatase TSH 2.959 Consult Discharge Plan - Plan Referrals: Alina Ramos DO [Primary Care Provider] - <Juvencio Johnson - Last Filed: 07/31/17 12:39> Date of Encounter: 07/30/17 Time of Encounter: 16:00 Assessment and Plan Discussion w patient/family: The assessment and plan as outlined above was discussed with the patient and/or family members who expressed understanding and agreement. All questions were answered. Thank you for involving us in the care of your patient. Please call with any questions. Objective Vital Signs, Last 4 Hours Temp Pulse Resp BP Pulse Ox 07/31/17 11:23 98.3 F 77 15 97/70 97 07/31/17 08:39 16 95 Results 07/31/17 05:09 07/31/17 05:09 Lab Results 07/31/17 07/31/17 07/31/17 05:09 05:09 05:09 WBC 7.9 Hgb 13.9 Hct 42.2 Plt Count 187 INR 2.3 Sodium 135 L Potassium 4.2 Chloride 101 Carbon Dioxide 25 BUN 37 H Creatinine 1.36 H Glucose 108 H Calcium 8.6 Total Bilirubin 3.6 H AST 27 ALT 46 Alkaline Phosphatase 50 - Attending Attestation I examined this patient and my medical decision-making was reviewed with the Resident Physician. I agree with the documented findings, disposition and treatment plan as described except to the extent set forth below. CC: shortness of breath PT reports shortness of breath has continued to improve. HE is able to ambulate with O2 without chest pain or shortness of breath, He notes his legs are less swollen. He is able to lie flat at 30 degrees with out shortness of breath, notes definite improvement over last 24 hours. PE: pt seen and examined, agree with above, note legs are less edematous. IMP: 1. Acute on chronic systolic heart failure secondary to non ischemic cardiomyopathy, improving with continued diuresis, will hold lisinopril c 36 hours, start Entresto, monitor clinical response. Encourage ambulation 2. Atrial fib, ventricular paced rhythm post AV diana ablation, 3. Hypertension; adequate control on current meds.
[2017-07-30] MEDS: Furosemide 40 MG/4 ML VIAL IVP SCH ×2 (10:52→17:50)
[2017-07-30] MEDS: BETAXOLOL 0.25% OP SCH (17:40)
[2017-07-30] MEDS: *HR* Warfarin 2.5 MG TABLET PO SCH (17:50)
--- NOTE | 2017-07-30 19:55 | Internal Med Progress Note ---
Date of Encounter: 07/30/17 Time of Encounter: 11:15 - Assessment and plan (1) Atrial fibrillation Current Visit: Yes Status: Chronic Assessment and plan: Chronic. Patient has AICD/pacemaker was placed on 07/08/2017, he diana ablation was performed at the same time. Continue telemetry Qualifiers: Atrial fibrillation type: chronic Qualified Code(s): I48.2 - Chronic atrial fibrillation (2) BRIAN on CPAP Current Visit: Yes Status: Chronic Assessment and plan: Chronic. Continue CPAP at bedtime. (3) HTN (hypertension) Current Visit: Yes Status: Chronic Assessment and plan: Well-controlled and normotensive. Continue monitor vital signs Continue Coreg, Aldactone, patient also receiving IV Lasix. Qualifiers: Hypertension type: essential hypertension Qualified Code(s): I10 - Essential (primary) hypertension (4) HLD (hyperlipidemia) Current Visit: Yes Status: Chronic Assessment and plan: Chronic. Continue statin. Qualifiers: Hyperlipidemia type: mixed hyperlipidemia Qualified Code(s): E78.2 - Mixed hyperlipidemia (5) DVT prophylaxis Current Visit: Yes Status: Acute Assessment and plan: Patient is on Coumadin. Pharmacy to dose. Continue to monitor INR. 07/30 INR 2.3, therapeutic. (6) Acute on chronic systolic (congestive) heart failure Current Visit: Yes Status: Acute Assessment and plan: Acute on chronic systolic CHF exacerbation. Patient is a readmission, admitted 07/25 & for CHF exacerbation and discharged to attend 's . 1+ pitting edema in bilateral LEs, and increasing shortness of breath. Echocardiogram today shows LVEF of 15%, severely dilated LV with severe global LV systolic dysfunction, indeterminant diastolic function, mild RV hypokinesis, severely dilated atria, mild MR, mild TR. Patient has AICD/pacemaker. Continue IV Lasix 40 mg twice daily, monitor renal function Continue telemetry Strict I and O. Daily weights 1.5 L fluid restriction and cardiac diet. (7) Presence of biventricular AICD Current Visit: Yes Status: Chronic Assessment and plan: Placed 07/08/17, AV diana ablation was performed by Dr. Hancock. 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 Continue Xalatan drops. Pt has limited vision. (9) CKD (chronic kidney disease) stage 3, GFR 30-59 ml/min Current Visit: Yes Status: Chronic Assessment and plan: Renal function is improved since admission. Creatinine 1.52, GFR 46. Continue to monitor labs Avoid nephrotoxins Patient receiving IV Lasix for acute exacerbation of CHF, closely monitor labs and adjust dose. (10) Thyroid disease Current Visit: Yes Status: Chronic Assessment and plan: Chronic. Continue Synthroid. TSH and free T4 within normal limits. - Time Spent With Patient Total time spent is greater than 50% in coordination of care (as documented) at patient's floor/unit and/or counseling patient: less than 15 minutes - Subjective Interval history: Pt was seen and assessed at bedside at 1110 a.m. Pt is alert and awake, decreased vision due to optic atrophy. She reports history of asthma, states he has not had an exacerbation along time. Patient does have wheezing in bilateral apices. Patient reports he normally wears oxygen at night and sees pulmonology here. Patient states that due to his decreased vision and the sudden of his , he will need to go to assisted living. He reports that his daughters are working on that, social service coordinator has also been consulted. - Constitutional Vitals: Temp Pulse Resp BP Pulse Ox 97.8 F 78 16 103/67 100 07/30/17 18:37 07/30/17 18:37 07/30/17 18:37 07/30/17 18:37 07/30/17 18:37 General appearance: Present: cooperative, mild distress, A&O X 3, pleasant, no acute distress, obese, answers questions appropriately - Head Head exam: Present: atraumatic, normal inspection, normocephalic - Eye Eye exam: Present: normal appearance, conjuntiva pink, sclera anicteric - Neck Neck exam general surgery: Present: normal inspection, supple, trachea midline. Absent: lymphadenopathy - Respiratory Respiratory exam: Present: decreased breath sounds, CTAB, wheezes. Absent: accessory muscle use, chest wall tenderness, rales, respiratory distress, rhonchi - Cardiovascular Cardiovascular exam: Present: RRR, +S1, +S2. Absent: diastolic murmur, gallop, rubs, systolic murmur - GI/Abdominal GI/Abdominal exam: Present: normal bowel sounds, soft. Absent: distended, hepatomegaly, tenderness - Extremities Exam Extremities exam: Present: normal capillary refill, normal inspection, pedal edema, warm, radial pulses palpable and symmetrical. Absent: calf tenderness, cyanotic, tenderness - Neurological Exam Neurological exam: Present: alert, oriented X3, no focal deficits. Absent: facial droop, speech deficit - Skin Skin exam: Present: dry, intact, normal color, warm. Absent: rash Internal Medicine: Result - Labs CBC & Chem 7: 07/30/17 05:08 07/30/17 05:08 Labs: Short CBC 07/30/17 Range/Units 05:08 WBC 6.5 (4.3-11.1) K/mcL Hgb 14.2 (12.9-16.9) g/dL Hct 43.0 (37.5-50.1) % Plt Count 184 (140-400) K/mcL Neutrophils # 4.5 (1.6-8.9) K/mcL BMP 07/30/17 05:08 Sodium 136 Potassium 4.2 Chloride 103 Carbon Dioxide 25 BUN 40 H Creatinine 1.52 H Glucose 142 H Calcium 8.7 Liver Function 07/30/17 Range/Units 05:08 Total Bilirubin 3.0 H (0.3-1.0) mg/dL AST 34 (13-39) Units/L ALT 51 (7-52) Units/L Alkaline Phosphatase 51 (34-104) Units/L Albumin 3.7 (3.5-5.7) g/dL - ABG Interpretation ABG results: PT/INR, D-dimer PT 25.5 Seconds (9.4-12.1) H 07/30/17 05:08 - Impressions Impressions Echocardiogram 07/30/17 14:10 Impressions: LVEF 15%. Severely dilated left ventricle. Severe global left ventricular systolic dysfunction. Indeterminate diastolic function. There is no LV thrombus. Mildly dilated right ventricle. Mild right ventricular hypokinesis. Severely dilated left atrium. Severely dilated right atrium. Mild mitral regurgitation. Mild tricuspid regurgitation. Moderate-severe pulmonary hypertension. Estimated RVSP is 52-62 mmHg. A device lead was visualized in the right atrium and right ventricle. Findings: Study Quality * Technically adequate exam. ECG Findings * Paced rhythm. Left Ventricle * LVEF 15%. * Severely dilated left ventricle. * Severe global left ventricular systolic dysfunction. * Indeterminate diastolic function. * There is no LV thrombus. Right Ventricle * Mildly dilated right ventricle. * Mild right ventricular hypokinesis. Left Atrium * Severely dilated left atrium. Right Atrium * Severely dilated right atrium. Interatrial Septum * Interatrial septum not well evaluated. Aortic Valve * Trileaflet aortic valve. * No aortic regurgitation. * No aortic stenosis. Mitral Valve * Normal mitral valve structure. * Mild mitral regurgitation. * No mitral stenosis. Tricuspid Valve * Normal tricuspid valve structure. * Mild tricuspid regurgitation. * Moderate-severe pulmonary hypertension. * Estimated RVSP is 52-62 mmHg. * Estimated RA pressure is 10-20 mmHg. Pulmonic Valve * Normal pulmonic valve structure and function. * Trace pulmonic regurgitation. Aorta * Normally sized aortic root. Pericardium * The pericardium appears normal. IVC * The IVC is dilated. * < 50% respiratory change. Device lead * A device lead was visualized in the right atrium and right ventricle. Pulmonary Artery * Normal visualized portions of the main pulmonary artery. Consult Discharge Plan - Plan Referrals: Alina Ramos DO [Primary Care Provider] -
[2017-07-30] MEDS: Latanoprost 2.5 ML BOTTLE BOTH EYES SCH (21:06)
[2017-07-31 06:01] LABS: Basophils % 0.5 %; Eosinophils # 0.2 K/mcL (0.0-0.6); Eosinophils % 2.2 %; Hematocrit 42.2 % (37.5-50.1); Hemoglobin 13.9 g/dL (12.9-16.9); Immature Granulocytes % 0.4 % (0-4); Lymphocytes % 12.4 %; Mean Corpuscular HGB Conc 32.9 g/dL (31.6-35.5); Mean Corpuscular Hemoglobin 31.6 pg (28.0-33.3); Mean Corpuscular Volume 95.9 fL (83.0-100.0); Mean Platelet Volume 9.9 fL (9.4-12.4); Monocytes # 0.8 K/mcL (0.0-1.3); Monocytes % 9.8 %; Neutrophils # 5.9 K/mcL (1.6-8.9); Platelet Count 187 K/mcL (140-400); Red Cell Distribution Width 15.9 % (11.5-14.5); Segmented Neutrophils % 74.7 %
[2017-07-31 06:03] LABS: INR 2.3; Prothrombin Time 25.1 Seconds (9.4-12.1)
[2017-07-31 06:29] LABS: Alanine Aminotransferase 46 Units/L (7-52); Albumin 3.6 g/dL (3.5-5.7); Albumin/Globulin Ratio 1.5 (1.1-2.2); Alkaline Phosphatase 50 Units/L (34-104); Aspartate Amino Transferase 27 Units/L (13-39); BUN/Creatinine Ratio 27 (6-26); Bilirubin,Total 3.6 mg/dL (0.3-1.0); Blood Urea Nitrogen 37 mg/dL (8-23); Calcium 8.6 mg/dL (8.6-10.3); Carbon Dioxide 25 mEq/L (23-29); Chloride 101 mEq/L (98-107); Globulin 2.4 g/dL (2.4-3.5); Glucose 108 mg/dL (70-105); Osmolality,Calculated 289 (280-300); Potassium 4.2 mEq/L (3.5-5.1); Sodium 135 mEq/L (136-145); eGFR For African Americans > 60 (> 60); eGFR For Non-African Americans 52 (> 60)
--- NOTE | 2017-07-31 06:52 | Electrocardiograph Report ---
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[id number] Requested By: Corina Simeon Order Number: [id number] Reading MD: Alina Ramos Measurements Intervals [place] Rate: 85 P: RI: 0 QRS: -54 QRSD: 162 T: 136 QT: 432 QTc: 475 Interpretive Statements UNCERTAIN IRREGULAR RHYTHM ELECTRONIC VENTRICULAR PACEMAKER -- CONTOUR ANALYSIS BASED ON INTRINSIC RHYTHM INTRAVENTRICULAR CONDUCTION DELAY [130+ ms QRS DURATION] LEFT VENTRICULAR HYPERTROPHY AND ST-T CHANGE [VOLTAGE CRITERIA PLUS ST/T ABNORMALITY] INFERIOR MYOCARDIAL INFARCTION [40+ ms Q WAVE AND/OR ST/T ABNORMALITY IN II/aVF], OF INDETERMINATE AGE WITH POSTERIOR EXTENSION Electronically Signed On 07-31-2017 6:50:45 EDT by Alina Ramos
[2017-07-31] MEDS: Beclomethasone 80mcg MDI IH SCH ×2 (08:39→19:32)
[2017-07-31] MEDS: Furosemide 40 MG/4 ML VIAL IVP SCH ×2 (09:36→17:19)
[2017-07-31] MEDS: Cholecalciferol (D-3) 1,000 UNIT TABLET PO SCH (09:36)
[2017-07-31] MEDS: Insulin LISPRO 300 UNITS/3 ML VIAL SQ SCH ×4 (09:36→20:47)
[2017-07-31] MEDS: Spironolactone 25 MG TABLET PO SCH (09:37)
[2017-07-31] MEDS: BETAXOLOL 0.25% OP SCH (09:57)
--- NOTE | 2017-07-31 12:45 | Cardiology Progress Note ---
Date of Encounter: 07/31/17 Time of Encounter: 11:00 Assessment and Plan (1) Acute on chronic systolic (congestive) heart failure Current Visit: Yes Status: Acute Less short of breath, able to tolerate increased activity, encourage ambulation with O2 supplement, lisinopril off, starting Entresto tonight., - Contine IV lasix, may be last day, change to po in AM, monitor I&O's, daily weights, salt restriction, and fluid restriction (2) CKD (chronic kidney disease) stage 3, GFR 30-59 ml/min Current Visit: Yes Status: Chronic SCr improving - baseline appears 1.4-1.5, staying in range, Starting Entresto (3) BRIAN on CPAP Current Visit: Yes Status: Chronic Compliant with CPAP, feels is sleeping better with this machine, that he is getting better O2 delivery, may need pulmonary consult to adjust mask or settings. Discussion w patient/family: The assessment and plan as outlined above was discussed with the patient and/or family members who expressed understanding and agreement. All questions were answered. Thank you for involving us in the care of your patient. Please call with any questions. Subjective Principal diagnosis: Acute Systolic CHF Interval history: PT reports is breathing much easier today, notes able to lie mostly flat to sleep last pm, has been up walking in room with O2. He has new complaint of bilateral groin rash, painful, itchy. Objective Vital Signs, Last 4 Hours Temp Pulse Resp BP Pulse Ox 07/31/17 11:23 98.3 F 77 15 97/70 97 General: Conversant, No Apparent Distress HEENT: Atraumatic, Normocephaly, Mucus Membranes Moist Neck: No JVD Cardiac: Reg Rate and Rhythm (Pacer), Other (Paced) Lungs: No Wheeze, Rales, Rhonchi Neuro: Alert and responsive, No focal deficits noted Abdomen: Soft, Non-Tender Skin: Other (red raised rash both groins) Musculoskeletal: No Chest Wall Tenderness Extremities: No Clubbing, Other (trace edema. ) Results 07/31/17 05:09 07/31/17 05:09 Lab Results 07/31/17 07/31/17 07/31/17 05:09 05:09 05:09 WBC 7.9 Hgb 13.9 Hct 42.2 Plt Count 187 INR 2.3 Sodium 135 L Potassium 4.2 Chloride 101 Carbon Dioxide 25 BUN 37 H Creatinine 1.36 H Glucose 108 H Calcium 8.6 Total Bilirubin 3.6 H AST 27 ALT 46 Alkaline Phosphatase 50 Consult Discharge Plan - Plan Referrals: Alina Ramos DO [Primary Care Provider] -
[2017-07-31] MEDS: Nystatin POWDER 30 GM BOTTLE TP SCH ×2 (15:28→20:46)
[2017-07-31] MEDS: Ipratropium/Albuterol Neb 3 ML IH SCH ×3 (15:54→23:24)
[2017-07-31] MEDS: *HR* Warfarin 2.5 MG TABLET PO SCH (17:20)
--- NOTE | 2017-07-31 19:06 | Internal Med Progress Note ---
Date of Encounter: 07/31/17 Time of Encounter: 13:25 - Assessment and plan (1) Atrial fibrillation Current Visit: Yes Status: Chronic Assessment and plan: Chronic. Patient has AICD/pacemaker was placed on 07/08/2017, he diana ablation was performed at the same time. Continue telemetry Patient anticoagulated with warfarin, pharmacy to dose. INR therapeutic at 2.3. Qualifiers: Atrial fibrillation type: chronic Qualified Code(s): I48.2 - Chronic atrial fibrillation (2) BRIAN on CPAP Current Visit: Yes Status: Chronic Assessment and plan: Chronic. Continue CPAP at bedtime. O2 at bedtime. (3) HTN (hypertension) Current Visit: Yes Status: Chronic Assessment and plan: Well-controlled and normotensive. Continue monitor vital signs Continue Coreg, Aldactone, patient also receiving IV Lasix. Qualifiers: Hypertension type: essential hypertension Qualified Code(s): I10 - Essential (primary) hypertension (4) HLD (hyperlipidemia) Current Visit: Yes Status: Chronic Assessment and plan: Chronic. Continue home medication. Qualifiers: Hyperlipidemia type: mixed hyperlipidemia Qualified Code(s): E78.2 - Mixed hyperlipidemia (5) DVT prophylaxis Current Visit: Yes Status: Acute Assessment and plan: Patient is on the front. Pharmacy dosing. INR daily 07/31 INR 2.3, therapeutic. (6) Acute on chronic systolic (congestive) heart failure Current Visit: Yes Status: Acute Assessment and plan: Acute on chronic systolic CHF exacerbation. Bilateral lower extremity edema is improving, patient is less short of breath, still wearing O2. Last dose of IV Lasix tonight, will switch to by mouth home dose tomorrow. I and O: -1.3 liters diuresis Continue IV Lasix 40 mg twice daily, monitor renal function Continue telemetry Strict I and O. Daily weights 1.5 L fluid restriction and cardiac diet. (7) Presence of biventricular AICD Current Visit: Yes Status: Chronic Assessment and plan: Placed 07/08/17, AV diana ablation was performed by Dr. Hancock. Continue home medications and anticoagulation. 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 (9) CKD (chronic kidney disease) stage 3, GFR 30-59 ml/min Current Visit: Yes Status: Chronic Assessment and plan: Renal function continues to improve. Creatinine 1.36, GFR 52. Continue to monitor labs Avoid nephrotoxins Patient receiving IV Lasix for acute exacerbation of CHF, closely monitor labs and adjust dose. By mouth Lasix beginning tomorrow. (10) Thyroid disease Current Visit: Yes Status: Chronic Assessment and plan: Chronic. Continue home medication. - Time Spent With Patient Total time spent is greater than 50% in coordination of care (as documented) at patient's floor/unit and/or counseling patient: less than 15 minutes - Subjective Interval history: Pt was seen and assessed at bedside at 1325. Pt is alert and awake, decreased vision due to optic atrophy. Patient states that he is feeling some better today. He reports that he would like to go to rehabilitation prior to going to assisted living. 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 Family member has multiple questions, all were answered. They verbalized understanding. - Constitutional Vitals: Temp Pulse Resp BP Pulse Ox 97.8 F 78 16 104/74 98 07/31/17 15:17 07/31/17 15:17 07/31/17 15:54 07/31/17 15:54 07/31/17 15:54 General appearance: Present: cooperative, mild distress, A&O X 3, pleasant, no acute distress, obese, answers questions appropriately - Head Head exam: Present: atraumatic, normal inspection, normocephalic - Eye Eye exam: Present: normal appearance, conjuntiva pink, sclera anicteric - Neck Neck exam general surgery: Present: supple, trachea midline. Absent: lymphadenopathy - Respiratory Respiratory exam: Present: decreased breath sounds, CTAB. Absent: accessory muscle use, chest wall tenderness, rales, respiratory distress, rhonchi, wheezes - Cardiovascular Cardiovascular exam: Present: RRR, +S1, +S2. Absent: diastolic murmur, gallop, rubs, systolic murmur - GI/Abdominal GI/Abdominal exam: Present: normal bowel sounds, soft. Absent: distended, hepatomegaly, tenderness - Extremities Exam Extremities exam: Present: normal capillary refill, pedal edema, warm, radial pulses palpable and symmetrical. Absent: calf tenderness, cyanotic, tenderness - Neurological Exam Neurological exam: Present: alert, oriented X3, no focal deficits. Absent: facial droop, speech deficit - Skin Skin exam: Present: dry, intact, normal color, warm. Absent: rash Internal Medicine: Result - Labs CBC & Chem 7: 07/31/17 05:09 07/31/17 05:09 Labs: Short CBC 07/31/17 Range/Units 05:09 WBC 7.9 (4.3-11.1) K/mcL Hgb 13.9 (12.9-16.9) g/dL Hct 42.2 (37.5-50.1) % Plt Count 187 (140-400) K/mcL Neutrophils # 5.9 (1.6-8.9) K/mcL BMP 07/31/17 05:09 Sodium 135 L Potassium 4.2 Chloride 101 Carbon Dioxide 25 BUN 37 H Creatinine 1.36 H Glucose 108 H Calcium 8.6 Liver Function 07/31/17 Range/Units 05:09 Total Bilirubin 3.6 H (0.3-1.0) mg/dL AST 27 (13-39) Units/L ALT 46 (7-52) Units/L Alkaline Phosphatase 50 (34-104) Units/L Albumin 3.6 (3.5-5.7) g/dL - ABG Interpretation ABG results: PT/INR, D-dimer PT 25.1 Seconds (9.4-12.1) H 07/31/17 05:09 Consult Discharge Plan - Plan Referrals: Alina Ramos DO [Primary Care Provider] -
[2017-07-31] MEDS: SACUBITRIL/VALSARTAN 24/26 MG TABLET PO SCH (20:46)
[2017-07-31] MEDS: Latanoprost 2.5 ML BOTTLE BOTH EYES SCH (20:50)
[2017-08-01] MEDS: Ipratropium/Albuterol Neb 3 ML IH SCH ×7 (03:52→23:42)
[2017-08-01 05:05] LABS: Basophils % 0.4 %; Eosinophils # 0.1 K/mcL (0.0-0.6); Eosinophils % 1.8 %; Hematocrit 43.1 % (37.5-50.1); Hemoglobin 14.2 g/dL (12.9-16.9); Immature Granulocytes % 0.3 % (0-4); Lymphocytes % 14.3 %; Mean Corpuscular HGB Conc 32.9 g/dL (31.6-35.5); Mean Corpuscular Hemoglobin 31.8 pg (28.0-33.3); Mean Corpuscular Volume 96.4 fL (83.0-100.0); Mean Platelet Volume 9.9 fL (9.4-12.4); Monocytes # 0.8 K/mcL (0.0-1.3); Monocytes % 11.5 %; Neutrophils # 4.8 K/mcL (1.6-8.9); Platelet Count 181 K/mcL (140-400); Red Blood Count 4.47 M/mcL (4.19-5.50); Red Cell Distribution Width 15.9 % (11.5-14.5); Segmented Neutrophils % 71.7 %
[2017-08-01 05:10] LABS: INR 2.4; Prothrombin Time 26.8 Seconds (9.4-12.1)
[2017-08-01 05:28] LABS: Alanine Aminotransferase 38 Units/L (7-52); Albumin 3.7 g/dL (3.5-5.7); Albumin/Globulin Ratio 1.6 (1.1-2.2); Alkaline Phosphatase 50 Units/L (34-104); Aspartate Amino Transferase 22 Units/L (13-39); BUN/Creatinine Ratio 25 (6-26); Blood Urea Nitrogen 32 mg/dL (8-23); Calcium 8.6 mg/dL (8.6-10.3); Carbon Dioxide 29 mEq/L (23-29); Chloride 100 mEq/L (98-107); Globulin 2.3 g/dL (2.4-3.5); Glucose 109 mg/dL (70-105); Osmolality,Calculated 289 (280-300); Potassium 4.1 mEq/L (3.5-5.1); Sodium 136 mEq/L (136-145); eGFR For African Americans > 60 (> 60); eGFR For Non-African Americans 56 (> 60)
[2017-08-01] MEDS: Beclomethasone 80mcg MDI IH SCH ×2 (07:52→20:16)
[2017-08-01] MEDS: Insulin LISPRO 300 UNITS/3 ML VIAL SQ SCH ×4 (10:19→20:48)
[2017-08-01] MEDS: Spironolactone 25 MG TABLET PO SCH (10:20)
[2017-08-01] MEDS: Furosemide 40 MG TABLET PO SCH ×2 (10:20→20:27)
[2017-08-01] MEDS: *HR* Metformin 500 MG TABLET PO SCH ×2 (10:20→17:58)
[2017-08-01] MEDS: Cholecalciferol (D-3) 1,000 UNIT TABLET PO SCH (10:20)
[2017-08-01] MEDS: SACUBITRIL/VALSARTAN 24/26 MG TABLET PO SCH ×2 (10:20→20:27)
[2017-08-01] MEDS: BETAXOLOL 0.25% OP SCH (10:23)
[2017-08-01] MEDS: Nystatin POWDER 30 GM BOTTLE TP SCH ×3 (10:38→20:27)
--- NOTE | 2017-08-01 14:29 | Internal Med Progress Note ---
Date of Encounter: 08/01/17 Time of Encounter: 08:38 - Assessment and plan (1) Atrial fibrillation Current Visit: Yes Status: Chronic Assessment and plan: Chronic. Patient has AICD/pacemaker was placed on 07/08/2017, he diana ablation was performed at the same time. Continue telemetry Patient anticoagulated with warfarin, pharmacy dosing. INR therapeutic at 2.4. Qualifiers: Atrial fibrillation type: chronic Qualified Code(s): I48.2 - Chronic atrial fibrillation (2) BRIAN on CPAP Current Visit: Yes Status: Chronic Assessment and plan: Chronic. Continue CPAP at bedtime. (3) HTN (hypertension) Current Visit: Yes Status: Chronic Assessment and plan: Well-controlled. Pt is normotensive. Continue monitor vital signs Continue Coreg, Aldactone, home dose of po Lasix continued. Qualifiers: Hypertension type: essential hypertension Qualified Code(s): I10 - Essential (primary) hypertension (4) HLD (hyperlipidemia) Current Visit: Yes Status: Chronic Assessment and plan: Chronic. Continue home dose of Lipitor. Qualifiers: Hyperlipidemia type: mixed hyperlipidemia Qualified Code(s): E78.2 - Mixed hyperlipidemia (5) DVT prophylaxis Current Visit: Yes Status: Acute Assessment and plan: Pt on Warfarin. Pharmacy dosing. INR therapeutic. (6) Acute on chronic systolic (congestive) heart failure Current Visit: Yes Status: Acute Assessment and plan: Bilateral lower extremity edema is improved, resps unlabored. Pt states that he is feeling better. PO Lasix started. I and O: -2 liters diuresis Lasix 40mg po bid, home dose, started today. Continue telemetry Strict I and O. Daily weights 1.5 L fluid restriction and cardiac diet. (7) Presence of biventricular AICD Current Visit: Yes Status: Chronic Assessment and plan: Placed 07/08/17, AV diana ablation was performed by Dr. Hancock. Continue home medications and anticoagulation. 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 Continue eye gtts, monitor for safety and falls. (9) CKD (chronic kidney disease) stage 3, GFR 30-59 ml/min Current Visit: Yes Status: Chronic Assessment and plan: Renal function continues to improve. Creatinine 1.28, GFR 56. Continue to monitor labs Avoid nephrotoxins PO lasix started today. (10) Thyroid disease Current Visit: Yes Status: Chronic Assessment and plan: Chronic. Continue home dose of Synthroid. (11) Diabetes mellitus type II, uncontrolled Current Visit: Yes Status: Acute Assessment and plan: New diagnosis. A1c 7.1%. Pt has been started on Metformin 500mg po BID. Continue accuchecks achs, SSI, and diabetic diet. Follow with PCP. Qualifiers: Diabetes mellitus longterm insulin use: without longterm use Diabetes mellitus complication status: without complication Qualified Code(s): E11.65 - Type 2 diabetes mellitus with hyperglycemia - Time Spent With Patient Total time spent is greater than 50% in coordination of care (as documented) at patient's floor/unit and/or counseling patient: less than 15 minutes - Subjective Interval history: Pt was seen and assessed at bedside at 0838. Pt is alert and awake, pleasant. Patient states that he is feeling better today. He reports that he would like to go to rehabilitation prior to going to assisted living, but if he can't get into one, he can go home and have a family friend stay with him until he can get to assisted living. - Constitutional Vitals: Temp Pulse Resp BP Pulse Ox 98.0 F 72 14 92/61 96 08/01/17 11:25 08/01/17 11:25 08/01/17 11:25 08/01/17 11:25 08/01/17 11:25 General appearance: Present: cooperative, mild distress, A&O X 3, pleasant, no acute distress, obese, answers questions appropriately - Head Head exam: Present: atraumatic, normal inspection, normocephalic - Eye Eye exam: Present: normal appearance, conjuntiva pink, sclera anicteric - Neck Neck exam general surgery: Present: supple, trachea midline. Absent: lymphadenopathy - Respiratory Respiratory exam: Present: CTAB, wheezes. Absent: accessory muscle use, chest wall tenderness, decreased breath sounds, rales, respiratory distress, rhonchi - Cardiovascular Cardiovascular exam: Present: RRR, +S1, +S2. Absent: diastolic murmur, gallop, rubs, systolic murmur - GI/Abdominal GI/Abdominal exam: Present: normal bowel sounds, soft. Absent: distended, hepatomegaly, tenderness - Extremities Exam Extremities exam: Present: normal capillary refill, normal inspection, warm, radial pulses palpable and symmetrical. Absent: calf tenderness, cyanotic, pedal edema, tenderness - Neurological Exam Neurological exam: Present: alert, oriented X3, no focal deficits. Absent: facial droop, speech deficit - Skin Skin exam: Present: dry, intact, normal color, warm. Absent: rash Internal Medicine: Result - Labs CBC & Chem 7: 08/01/17 04:26 08/01/17 04:26 Labs: Short CBC 08/01/17 Range/Units 04:26 WBC 6.7 (4.3-11.1) K/mcL Hgb 14.2 (12.9-16.9) g/dL Hct 43.1 (37.5-50.1) % Plt Count 181 (140-400) K/mcL Neutrophils # 4.8 (1.6-8.9) K/mcL BMP 08/01/17 04:26 Sodium 136 Potassium 4.1 Chloride 100 Carbon Dioxide 29 BUN 32 H Creatinine 1.28 Glucose 109 H Calcium 8.6 Liver Function 08/01/17 Range/Units 04:26 Total Bilirubin 4.0 H (0.3-1.0) mg/dL AST 22 (13-39) Units/L ALT 38 (7-52) Units/L Alkaline Phosphatase 50 (34-104) Units/L Albumin 3.7 (3.5-5.7) g/dL - ABG Interpretation ABG results: PT/INR, D-dimer PT 26.8 Seconds (9.4-12.1) H 08/01/17 04:26 Consult Discharge Plan - Plan Referrals: Alian Ramos DO [Primary Care Provider] -
[2017-08-01] MEDS: *HR* Warfarin 2.5 MG TABLET PO SCH (17:58)
[2017-08-01] MEDS: Latanoprost 2.5 ML BOTTLE BOTH EYES SCH (20:28)
[2017-08-01] MEDS: Sennosides/Docusate Sodium TABLET PO SCH (22:34)
[2017-08-02] MEDS: Ipratropium/Albuterol Neb 3 ML IH SCH ×6 (03:56→23:58)
[2017-08-02 05:36] LABS: Basophils % 0.3 %; Eosinophils # 0.2 K/mcL (0.0-0.6); Eosinophils % 2.6 %; Hematocrit 44.3 % (37.5-50.1); Hemoglobin 14.5 g/dL (12.9-16.9); Immature Granulocytes % 0.2 % (0-4); Lymphocytes # 0.8 K/mcL (0.6-4.6); Lymphocytes % 12.1 %; Mean Corpuscular HGB Conc 32.7 g/dL (31.6-35.5); Mean Corpuscular Hemoglobin 31.5 pg (28.0-33.3); Mean Corpuscular Volume 96.3 fL (83.0-100.0); Mean Platelet Volume 9.6 fL (9.4-12.4); Monocytes # 0.7 K/mcL (0.0-1.3); Monocytes % 11.1 %; Neutrophils # 4.8 K/mcL (1.6-8.9); Platelet Count 187 K/mcL (140-400); Red Cell Distribution Width 15.9 % (11.5-14.5); Segmented Neutrophils % 73.7 %
[2017-08-02 05:41] LABS: INR 2.5
[2017-08-02 05:55] LABS: Alanine Aminotransferase 32 Units/L (7-52); Albumin 3.4 g/dL (3.5-5.7); Albumin/Globulin Ratio 1.4 (1.1-2.2); Alkaline Phosphatase 48 Units/L (34-104); Aspartate Amino Transferase 19 Units/L (13-39); BUN/Creatinine Ratio 23 (6-26); Bilirubin,Total 3.7 mg/dL (0.3-1.0); Blood Urea Nitrogen 29 mg/dL (8-23); Calcium 8.6 mg/dL (8.6-10.3); Carbon Dioxide 29 mEq/L (23-29); Chloride 102 mEq/L (98-107); Globulin 2.4 g/dL (2.4-3.5); Glucose 111 mg/dL (70-105); Osmolality,Calculated 291 (280-300); Potassium 4.3 mEq/L (3.5-5.1); Sodium 137 mEq/L (136-145); Total Protein 5.8 g/dL (6.4-8.9); eGFR For African Americans > 60 (> 60); eGFR For Non-African Americans 58 (> 60)
[2017-08-02] MEDS: BETAXOLOL 0.25% OP SCH (06:19)
[2017-08-02] MEDS: Beclomethasone 80mcg MDI IH SCH ×2 (07:57→19:57)
[2017-08-02] MEDS: Cholecalciferol (D-3) 1,000 UNIT TABLET PO SCH (08:37)
[2017-08-02] MEDS: *HR* Metformin 500 MG TABLET PO SCH ×2 (08:37→16:31)
[2017-08-02] MEDS: SACUBITRIL/VALSARTAN 24/26 MG TABLET PO SCH ×2 (08:38→21:21)
[2017-08-02] MEDS: Insulin LISPRO 300 UNITS/3 ML VIAL SQ SCH ×4 (08:38→21:23)
[2017-08-02] MEDS: Sennosides/Docusate Sodium TABLET PO SCH ×2 (08:38→21:28)
[2017-08-02] MEDS: Spironolactone 25 MG TABLET PO SCH (08:38)
[2017-08-02] MEDS: Furosemide 40 MG TABLET PO SCH ×2 (08:38→21:21)
[2017-08-02] MEDS: Nystatin POWDER 30 GM BOTTLE TP SCH ×3 (08:39→21:22)
--- NOTE | 2017-08-02 14:30 | Cardiology Progress Note ---
<Leeroy Stevens - Last Filed: 08/03/17 13:34> Date of Encounter: 08/03/17 Time of Encounter: 14:27 Assessment and Plan (1) Acute on chronic systolic (congestive) heart failure Current Visit: No Status: Acute Patient was started on Entresto. Symptoms continuing to improve. (2) CKD (chronic kidney disease) stage 3, GFR 30-59 ml/min Current Visit: Yes Status: Chronic SCr improving - baseline appears 1.4-1.5, staying in range, Entresto started (3) BRIAN on CPAP Current Visit: Yes Status: Chronic Compliant with CPAP, feels is sleeping better with this machine, and that he is getting better O2 delivery. Discussion w patient/family: The assessment and plan as outlined above was discussed with the patient and/or family members who expressed understanding and agreement. All questions were answered. Thank you for involving us in the care of your patient. Please call with any questions. Subjective Principal diagnosis: Acute Systolic CHF Interval history: PT reports is breathing much easier today and feels he is improving everyday. States he is sleeping better at night. Feels he is able to ambulate more today up from chair to the bathroom and around his room. Objective Vital Signs, Last 4 Hours Temp Pulse Resp BP Pulse Ox 08/02/17 12:08 97.3 F L 60 18 104/70 97 General: Conversant, No Apparent Distress HEENT: Atraumatic, Normocephaly, Mucus Membranes Moist Neck: No JVD, Normal carotid pulses Cardiac: Reg Rate and Rhythm, Normal S1 and S2, No Murmur Lungs: Normal Breath Sounds, No Wheeze, Rales, Rhonchi Neuro: Alert and responsive, No focal deficits noted Abdomen: Soft, Non-Tender Skin: No rashes noted on visualized skin Musculoskeletal: No Chest Wall Tenderness Extremities: No Clubbing, No Cyanosis, No Edema, Normal Pulses Results 08/03/17 04:52 08/03/17 04:52 Lab Results 08/02/17 08/02/17 08/02/17 05:10 05:10 05:10 WBC 6.5 Hgb 14.5 Hct 44.3 Plt Count 187 INR 2.5 Sodium 137 Potassium 4.3 Chloride 102 Carbon Dioxide 29 BUN 29 H Creatinine 1.24 Glucose 111 H Calcium 8.6 Total Bilirubin 3.7 H AST 19 ALT 32 Alkaline Phosphatase 48 Consult Discharge Plan - Plan Referrals: Alina Ramos W, DO [Primary Care Provider] - <MikaMadai - Last Filed: 08/03/17 14:49> Date of Encounter: 08/03/17 Assessment and Plan Discussion w patient/family: I examined this patient and my medical decision-making was reviewed with the Resident Physician. I agree with the documented findings, disposition and treatment plan. Mr. Hart presented with acute on chronic systolic heart failure on 07/31. He is feeling well today and primary team has changed IV lasix to PO. Agree with continuing medical management. Will sign off. Recommend outpatient follow up with Cardiology. Objective Vital Signs, Last 4 Hours Temp Pulse Resp BP Pulse Ox 08/03/17 11:38 20 94 08/03/17 11:16 97.3 F L 81 18 97/65 96 Results 08/03/17 04:52 08/03/17 04:52 Lab Results 08/03/17 08/03/17 08/03/17 04:52 04:52 04:52 WBC 5.8 Hgb 14.9 Hct 46.2 Plt Count 202 INR 2.1 Sodium 137 Potassium 4.2 Chloride 101 Carbon Dioxide 27 BUN 27 H Creatinine 1.37 H Glucose 90 Calcium 8.9
--- NOTE | 2017-08-02 16:05 | Internal Med Progress Note ---
Date of Encounter: 08/02/17 Time of Encounter: 10:15 - Assessment and plan (1) Atrial fibrillation Current Visit: Yes Status: Chronic Assessment and plan: Chronic. Patient has AICD/pacemaker was placed on 07/08/2017, diana ablation was performed at the same time. Patient anticoagulated with warfarin, pharmacy dosing. INR therapeutic at 2.5. Continue to monitor INR. Continue telemetry Qualifiers: Atrial fibrillation type: chronic Qualified Code(s): I48.2 - Chronic atrial fibrillation (2) BRIAN on CPAP Current Visit: Yes Status: Chronic Assessment and plan: Chronic. CPAP. (3) HTN (hypertension) Current Visit: Yes Status: Chronic Assessment and plan: Well-controlled. Pt is normotensive. Continue Coreg, Aldactone, home dose of po Lasix continued. Qualifiers: Hypertension type: essential hypertension Qualified Code(s): I10 - Essential (primary) hypertension (4) HLD (hyperlipidemia) Current Visit: Yes Status: Chronic Assessment and plan: Chronic. Continue statin Qualifiers: Hyperlipidemia type: mixed hyperlipidemia Qualified Code(s): E78.2 - Mixed hyperlipidemia (5) DVT prophylaxis Current Visit: Yes Status: Acute Assessment and plan: Pt on Warfarin. Pharmacy dosing. INR therapeutic 2.5 (6) Acute on chronic systolic (congestive) heart failure Current Visit: Yes Status: Acute Assessment and plan: Bilateral lower extremity edema is resolved, resps unlabored. Pt states that he is feeling better. Continue home dose of Lasix. I and O: -3 liters diuresis Pt has been started on Entresto by cardiology. Lasix 40mg po BID Continue telemetry Strict I and O. Daily weights 1.5 L fluid restriction and cardiac diet. (7) Presence of biventricular AICD Current Visit: Yes Status: Chronic Assessment and plan: Chronic. Placed June,. Ablation done at that time. 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 Pt has limited vision. He realizes his limitations, is requesting to go to rehabilitation, then to assisted living where he can have a little more independence. (9) CKD (chronic kidney disease) stage 3, GFR 30-59 ml/min Current Visit: Yes Status: Chronic Assessment and plan: Renal function within normal limits. Creatinine 1.24, GFR 58. Continue to monitor labs Avoid nephrotoxins (10) Thyroid disease Current Visit: Yes Status: Chronic Assessment and plan: Chronic. Continue home dose of Synthroid. (11) Diabetes mellitus type II, uncontrolled Current Visit: Yes Status: Acute Assessment and plan: New diagnosis. A1c 7.1%. Pt has been started on Metformin 500mg po BID, tolerating well. Accu-Cheks much better controlled. Continue accuchecks achs, SSI, and diabetic diet. Follow with PCP. Qualifiers: Diabetes mellitus intermediate insulin use: without intermediate use Diabetes mellitus complication status: without complication Qualified Code(s): E11.65 - Type 2 diabetes mellitus with hyperglycemia - Time Spent With Patient Total time spent is greater than 50% in coordination of care (as documented) at patient's floor/unit and/or counseling patient: less than 15 minutes - Subjective Interval history: Pt was seen and assessed at bedside at 1015. Pt is alert and awake, pleasant. Patient states that he is continuing to improve and states he is proud of his progress. Patient is aware of process to get admitted to rehabilitation. PT/ OT recommend inpatient rehabilitation. Social service consult is still pending. Patient denies nausea, vomiting, diarrhea, diaphoresis. He denies headache, shortness of breath or chest pain. - Constitutional Vitals: Temp Pulse Resp BP Pulse Ox 97.1 F L 78 18 93/68 96 08/02/17 15:31 08/02/17 15:31 08/02/17 15:31 08/02/17 15:31 08/02/17 15:31 General appearance: Present: cooperative, mild distress, A&O X 3, pleasant, no acute distress, obese, answers questions appropriately - Head Head exam: Present: atraumatic, normal inspection, normocephalic - Eye Eye exam: Present: conjuntiva pink, sclera anicteric. Absent: normal appearance - Neck Neck exam general surgery: Present: normal inspection, supple, trachea midline. Absent: lymphadenopathy, tenderness - Respiratory Respiratory exam: Present: CTAB. Absent: accessory muscle use, rales, rhonchi, wheezes - Cardiovascular Cardiovascular exam: Present: RRR, +S1, +S2. Absent: diastolic murmur, gallop, rubs, systolic murmur - GI/Abdominal GI/Abdominal exam: Present: normal bowel sounds, soft, no peritoneal signs. Absent: distended, tenderness - Extremities Exam Extremities exam: Present: warm, radial pulses palpable and symmetrical. Absent : calf tenderness, cyanotic, pedal edema - Neurological Exam Neurological exam: Present: alert, oriented X3, no focal deficits. Absent: facial droop, speech deficit - Skin Skin exam: Present: dry, intact, normal color, warm. Absent: rash Internal Medicine: Result - Labs CBC & Chem 7: 08/02/17 05:10 08/02/17 05:10 Labs: Short CBC 08/02/17 Range/Units 05:10 WBC 6.5 (4.3-11.1) K/mcL Hgb 14.5 (12.9-16.9) g/dL Hct 44.3 (37.5-50.1) % Plt Count 187 (140-400) K/mcL Neutrophils # 4.8 (1.6-8.9) K/mcL BMP 08/02/17 05:10 Sodium 137 Potassium 4.3 Chloride 102 Carbon Dioxide 29 BUN 29 H Creatinine 1.24 Glucose 111 H Calcium 8.6 Liver Function 08/02/17 Range/Units 05:10 Total Bilirubin 3.7 H (0.3-1.0) mg/dL AST 19 (13-39) Units/L ALT 32 (7-52) Units/L Alkaline Phosphatase 48 (34-104) Units/L Albumin 3.4 L (3.5-5.7) g/dL - ABG Interpretation ABG results: PT/INR, D-dimer PT 27.0 Seconds (9.4-12.1) H 08/02/17 05:10 Consult Discharge Plan - Plan Referrals: Alina Ramos DO [Primary Care Provider] -
[2017-08-02] MEDS: *HR* Warfarin 2.5 MG TABLET PO SCH (16:31)
[2017-08-02] MEDS: Latanoprost 2.5 ML BOTTLE BOTH EYES SCH (21:22)
[2017-08-03] MEDS: Ipratropium/Albuterol Neb 3 ML IH SCH ×4 (03:43→15:02)
[2017-08-03 06:11] LABS: Basophils % 0.7 %; Eosinophils # 0.2 K/mcL (0.0-0.6); Eosinophils % 4.1 %; Hematocrit 46.2 % (37.5-50.1); Hemoglobin 14.9 g/dL (12.9-16.9); Immature Granulocytes % 0.3 % (0-4); Lymphocytes # 0.9 K/mcL (0.6-4.6); Mean Corpuscular HGB Conc 32.3 g/dL (31.6-35.5); Mean Corpuscular Hemoglobin 31.3 pg (28.0-33.3); Mean Corpuscular Volume 97.1 fL (83.0-100.0); Mean Platelet Volume 9.7 fL (9.4-12.4); Monocytes # 0.7 K/mcL (0.0-1.3); Monocytes % 11.3 %; Neutrophils # 3.9 K/mcL (1.6-8.9); Platelet Count 202 K/mcL (140-400); Red Blood Count 4.76 M/mcL (4.19-5.50); Red Cell Distribution Width 15.7 % (11.5-14.5); Segmented Neutrophils % 67.6 %
[2017-08-03 06:33] LABS: BUN/Creatinine Ratio 20 (6-26); Blood Urea Nitrogen 27 mg/dL (8-23); Calcium 8.9 mg/dL (8.6-10.3); Carbon Dioxide 27 mEq/L (23-29); Chloride 101 mEq/L (98-107); Glucose 90 mg/dL (70-105); Osmolality,Calculated 289 (280-300); Potassium 4.2 mEq/L (3.5-5.1); Sodium 137 mEq/L (136-145); eGFR For African Americans > 60 (> 60); eGFR For Non-African Americans 52 (> 60)
[2017-08-03 06:36] LABS: INR 2.1
[2017-08-03] MEDS: Beclomethasone 80mcg MDI IH SCH (08:03)
[2017-08-03] MEDS: Insulin LISPRO 300 UNITS/3 ML VIAL SQ SCH ×3 (08:58→17:10)
[2017-08-03] MEDS: Sennosides/Docusate Sodium TABLET PO SCH (08:59)
[2017-08-03] MEDS: SACUBITRIL/VALSARTAN 24/26 MG TABLET PO SCH (08:59)
[2017-08-03] MEDS: *HR* Metformin 500 MG TABLET PO SCH ×2 (08:59→17:14)
[2017-08-03] MEDS: Cholecalciferol (D-3) 1,000 UNIT TABLET PO SCH (08:59)
[2017-08-03] MEDS: Spironolactone 25 MG TABLET PO SCH (08:59)
[2017-08-03] MEDS: Furosemide 40 MG TABLET PO SCH (08:59)
[2017-08-03] MEDS: Nystatin POWDER 30 GM BOTTLE TP SCH ×2 (09:07→14:58)
[2017-08-03] MEDS: BETAXOLOL 0.25% OP SCH (09:08)
[2017-08-03 15:31] VITALS: BP 90/63
--- NOTE | 2017-08-03 15:36 | Discharge Summary ---
Date of Encounter: 08/05/17 Time of Encounter: 15:32 - Discharge Diagnosis (1) Atrial fibrillation Priority: Primary Status: Chronic Qualifiers: Atrial fibrillation type: chronic Qualified Code(s): I48.2 - Chronic atrial fibrillation (2) BRIAN on CPAP Priority: Primary Status: Chronic (3) HTN (hypertension) Priority: Primary Status: Chronic Qualifiers: Hypertension type: essential hypertension Qualified Code(s): I10 - Essential (primary) hypertension (4) HLD (hyperlipidemia) Priority: Primary Status: Chronic Qualifiers: Hyperlipidemia type: mixed hyperlipidemia Qualified Code(s): E78.2 - Mixed hyperlipidemia (5) Acute on chronic systolic (congestive) heart failure Priority: Primary Status: Acute (6) Presence of biventricular AICD Priority: Primary Status: Chronic (7) Optic atrophy Priority: Primary Status: Chronic (8) CKD (chronic kidney disease) stage 3, GFR 30-59 ml/min Priority: Primary Status: Chronic (9) Thyroid disease Priority: Primary Status: Chronic (10) Diabetes mellitus type II, uncontrolled Priority: Primary Status: Acute Qualifiers: Diabetes mellitus assisted insulin use: without assisted use Diabetes mellitus complication status: without complication Qualified Code(s): E11.65 - Type 2 diabetes mellitus with hyperglycemia Hospital course: Mr. Hart is a 67 year old male w/PMH of atrial fibrillation, cardiomyopathy, optic atrophy, CHF, diabetes, HLD, HTN, kidney stones, CKD, and thyroid disease presents from the ED with chief complaint of shortness of breath and dyspnea. He was found to be in a COPD exacerbation and was admitted for IV diuresis and cardiology consultation. He was evaluated by cardiology who noted acute decompensated systolic CHF with crackles on exam, LE edema bilaterally. CXR showed cardiomegaly with increased vascular congestion without pulmonary edema. Of note, the patient had recent admission for same symptoms and etiology suspected possible Takotsubo. 07/30/17 TTE with EF 15%, severely dilated left ventricle and severe left jugular systolic dysfunction (unchanged from 2015). He was diuresed with IV Lasix with significant improvement in symptoms and eventually transitioned to his home Lasix. Per cardiology, home ACEI was stopped and entresto was started after 36 hour washout. He was discharged to acute inpatient rehabilitation in stable condition with outpatient follow-up. Discharge discussed with: patient (Seen and examined at bedside. Patient says he feels significantly improved and feels he is ready for discharge. Has some shortness of breath but overall improved and only minimal pedal edema. No chest pain, no shortness of breath.) - Time Spent with Patient Total time spent providing and/or coordinating discharge services: - Discharge Medications Prescriptions: Sacubitril/Valsartan 24/26 mg [Entresto 24 mg-26 mg Tablet] 1 tab PO BID #60 tablet Home Medications: Albuterol Sulfate [Albuterol Inhaler] 2 puff IH Q4HR PRN 01/11/15 [History] Allopurinol [Zyloprim] 100 mg PO QPM 01/11/15 [History] Beclomethasone Diprop 80mcg [QVAR 80 mcg] 1 puff IH BIDR 01/11/15 [History] Cyanocobalamin (Vitamin B-12) [Vitamin B12] 1,000 mcg PO TH 01/11/15 [History] Levothyroxine [Synthroid] 112 mcg PO QAM 01/11/15 [History] Spironolactone [Aldactone] 25 mg PO DAILY 01/11/15 [History] Warfarin [Coumadin] 2.5 mg PO QPM 01/11/15 [History] Betaxolol 0.25% [Betoptic S] 1 drop BOTH EYES QAM 06/17/15 [History] Travoprost [Travatan Z] 1 drop BOTH EYES HS 06/17/15 [History] Furosemide [Lasix] 40 mg PO BID #60 06/19/15 [Rx] Cholecalciferol (Vitamin D3) [Vitamin D3] 5,000 unit PO DAILY 07/08/17 [History] Atorvastatin [Lipitor] 40 mg PO QPM 07/25/17 [History] Sacubitril/Valsartan 24/26 mg [Entresto 24 mg-26 mg Tablet] 1 tab PO BID #60 tablet 08/03/17 [Rx] Allergies/Adverse Reactions: 3 Allergy/AdvReac Type Severity Reaction Status Date / Time aspirin [ASA] Allergy See Verified 07/29/17 09:25 Comments Penicillins Allergy See Verified 07/29/17 09:25 Comments Tetracycline Allergy See Verified 07/29/17 09:25 Comments vancomycin Allergy See Verified 07/29/17 09:25 Comments hydrochlorothiazide AdvReac Rash Verified 07/29/17 09:25 NSAIDS (Non-Steroidal AdvReac See Verified 07/29/17 09:25 Anti-Inflamma Comments Date of admission: 07/31/17 19:03 Primary care physician: Alina Ramos DO Discharging clinician: Marion Delgado Anticipated date of discharge: 08/03/17 - Constitutional Vitals: Temp Pulse Resp BP Pulse Ox 97.3 F L 85 17 90/63 95 08/03/17 15:30 08/03/17 15:30 08/03/17 15:30 08/03/17 15:30 08/03/17 15:30 General appearance: Present: cooperative, A&O X 3, pleasant, no acute distress, obese, answers questions appropriately - Head Head exam: Present: atraumatic, normocephalic - Eye Eye exam: Present: PERRL, conjuntiva pink, sclera anicteric Pupils: Present: PERRL - Neck Neck exam general surgery: Present: supple, trachea midline. Absent: lymphadenopathy - Respiratory Respiratory exam: Present: CTAB. Absent: accessory muscle use, rales, rhonchi, wheezes - Cardiovascular Cardiovascular exam: Present: irregular rhythm, +S1, +S2. Absent: diastolic murmur, gallop, rubs, systolic murmur - GI/Abdominal GI/Abdominal exam: Present: normal bowel sounds, soft, no peritoneal signs. Absent: distended, tenderness - Extremities Exam Extremities exam: Present: warm, radial pulses palpable and symmetrical. Absent : calf tenderness, cyanotic, pedal edema - Neurological Exam Neurological exam: Present: CN II-XII intact, oriented X3, no focal deficits. Absent: pronater drift, facial droop, speech deficit - Skin Skin exam: Present: dry, intact - Patient Status Disposition: Transfer Hospital Swing Bed Condition: Good Functional capacity at discharge: uses cane/walker Overall status at discharge: patient is progressing back to baseline - Discharge Instructions Instructions: Heart Failure (DC) Follow Up With: Alina Ramos DO [Primary Care Provider] - - Diet and Activity Activity: as per physical therapy Diet: diabetic diet, low fat, low cholesterol
[2017-08-03] MEDS: *HR* Warfarin 2.5 MG TABLET PO SCH (17:14)
--- NOTE | 2017-08-03 18:11 | Physician Discharge Referral ---
ExtendedCare Referral Info Transfer To: [facility] inpatient rehabilitation Provider in Charge: Kathrine Delgado CMP Provider in Charge after Transfer: PCP Institutional Level of Care: Skilled - Transfer Medications Prescriptions: Sacubitril/Valsartan 24/26 mg [Entresto 24 mg-26 mg Tablet] 1 tab PO BID #60 tablet Home Medications: Albuterol Sulfate [Albuterol Inhaler] 2 puff IH Q4HR PRN 01/11/15 [History] Allopurinol [Zyloprim] 100 mg PO QPM 01/11/15 [History] Beclomethasone Diprop 80mcg [QVAR 80 mcg] 1 puff IH BIDR 01/11/15 [History] Cyanocobalamin (Vitamin B-12) [Vitamin B12] 1,000 mcg PO TH 01/11/15 [History] Levothyroxine [Synthroid] 112 mcg PO QAM 01/11/15 [History] Spironolactone [Aldactone] 25 mg PO DAILY 01/11/15 [History] Warfarin [Coumadin] 2.5 mg PO QPM 01/11/15 [History] Betaxolol 0.25% [Betoptic S] 1 drop BOTH EYES QAM 06/17/15 [History] Travoprost [Travatan Z] 1 drop BOTH EYES HS 06/17/15 [History] Furosemide [Lasix] 40 mg PO BID #60 06/19/15 [Rx] Cholecalciferol (Vitamin D3) [Vitamin D3] 5,000 unit PO DAILY 07/08/17 [History] Atorvastatin [Lipitor] 40 mg PO QPM 07/25/17 [History] Sacubitril/Valsartan 24/26 mg [Entresto 24 mg-26 mg Tablet] 1 tab PO BID #60 tablet 08/03/17 [Rx] Allergies/Adverse Reactions: 3 Allergy/AdvReac Type Severity Reaction Status Date / Time aspirin [ASA] Allergy See Verified 07/29/17 09:25 Comments Penicillins Allergy See Verified 07/29/17 09:25 Comments Tetracycline Allergy See Verified 07/29/17 09:25 Comments vancomycin Allergy See Verified 07/29/17 09:25 Comments hydrochlorothiazide AdvReac Rash Verified 07/29/17 09:25 NSAIDS (Non-Steroidal AdvReac See Verified 07/29/17 09:25 Anti-Inflamma Comments - Respiratory Orders Oxygen / L per min (2 liters per nasal canula) Smoking Cessation: Smoking cessation has been advised. For more information, call the [place] Tobacco Quit Line at 0-294-HAEP-NOW. - Advance Directives Code Status: Full Code - Mobility Orders Ambulate (walker) - Rehabiliation Orders Rehab Potential: Good Rehab Orders: Evaluation for Physical Therapy, Evaluation for Occupational Therapy - Diet Orders Cardiac (cardiac/diabetic diet) CERTIFICATION: I certify that the transfer of the above named patient to an Extended Care Facility is necessary for the continuing treatment of the diagnosis listed. The above information is true and accurate reflection of patient's current condition. Confidential - Redisclosure prohibited without a patient's written consent.
== END 2017-08-03 18:42 | disposition other institution (70) | DRG 291 ==
LOC: EMEROO 08:17 → 3BNU 08:17
PROVIDERS: ADMIT Internal Medicine; ATTEND Registered Nurse